=== PATIENT | female | born 1980 | race Caucasian/White ===

== ENCOUNTER → 2016-07-06 | Day surgery (SDC) | payer BC, OTHER ==
[2016-06-28 07:36] VITALS: Ht 172.7 cm; Wt 145.4 kg
[~2016-07-06] VITALS: Ht 172.7 cm; Wt 145.4 kg
[~2016-07-06] MED LIST: BECL1AER5 NAE; FLX10 PO; HYDR-5688 PO; IOPAMIDOL INJ 61% 15 ML VIAL ONE; LIDOCAINE HCL 1% MPF 5 ML VIAL ONE; PREG1CAP70 PO; PREG200C PO; PRENTAB26 PO; PRLSR20 PO; SITA50TA3 PO; SODIUM CHLORIDE 0.9% INJ 10 ML VIAL ONE; TIZA2CAP PO
--- NOTE | 2016-07-06 14:45 | History & Physical Bridge - [place] ---
H&P Re-Evaluation Bridge Note: I have examined the patient, reviewed the History & Physical and in the interval since the performance of the History & Physical I have noted the following changes of clinical significance: No changes noted
--- NOTE | 2016-07-06 15:09 | Discharge Instructions ---
Discharge Instructions Visit Reason for Visit: Lumbar Radiculopathy Discharge Discharge Diagnosis / Problem: low back pain Discharge Goals Goal(s): Decrease discomfort, Improve function Activity Recommendations Activity Limitations: resume your previous activity Anesthesia . Post Anesthesia Instructions: If you have had General Anesthesia or IV Sedation: * Do not drive today. * Resume driving when surgeon permits. * Do not make important decisions or sign legal documents today. * Call surgeon for: 1. Temperature elevations greater than 101 degrees F. 2. Uncontrollable pain. 3. Excessive bleeding. 4. Persistent nausea and vomiting. 5. Medication intolerance (nausea, vomiting or rash). * For nausea and vomiting use only clear liquids such as: tea, soda, bouillon until nausea subsides, then gradually increase diet as tolerated. * If you have any concerns or questions, call your surgeon's office. If physician is unavailable and it is an emergency, call 911 or go to the nearest emergency room. . Diet Recommendations Recommended Home Diet: no limitations Procedures Procedures Performed: Lumbar Epidural Steroid Injection Pending Studies Studies pending at discharge: no Medical Emergencies . Who to Call and When: Medical Emergencies: If at any time you feel your situation is an emergency, please call 911 immediately. . Non-Emergent Contact Non-Emergency issues call your: Specialist . . "Provider Documentation" section prepared by Adi Hoyos.
[2016-07-06 15:17] VITALS: TEMP 37.5
[2016-07-06 15:19] VITALS: BP 129/80; PULSE 83; O2SAT 99
--- NOTE | 2016-07-06 15:25 | OPERATIVE REPORT ---
DATE OF OPERATION: 07/06/2016 PREOPERATIVE DIAGNOSIS: L4-L5 annular tear with bilateral lower extremity radiculopathies. POSTOPERATIVE DIAGNOSES: Same. PROCEDURE: Left paramedian L4-L5 interlaminar epidural steroid injection under fluoroscopic guidance. SURGEON: Dr. Adi Hoyos. INDICATIONS: The patient is a 35-year-old -[place] female who has received epidurals in the past with good results with radicular pain, most recent one was done a number of months ago. She reports that her pain has been increasing and she is requesting an epidural to provide her with some relief of radicular pain down the leg. PHYSICAL EXAMINATION: Pleasant female seated comfortably in no apparent distress. She has some soreness to palpation of her sciatic notches bilaterally, worse with forward flexion. No problems with extension. She has normal motor and sensory exam of her lower extremities. CONSENT: Verbal and written consent was obtained from the patient. Risks and benefits were reviewed. Risks include but are not limited to epidural abscess, epidural hematoma, allergic reaction, dural puncture. The patient wishes to proceed. PROCEDURE: The patient was taken back to the special procedures room of the [facility] where she was maintained in a prone position. Backside was cleansed with Betadine x3 and a dry sterile dressing was applied. Fluoroscope was used to identify the L5-S1 intralaminar space and overlying skin was anesthetized on the left side with 4 mL of lidocaine 1% with a 25 gauge 1.5-inch needle. A 20 gauge 6 inch Tuohy needle was then directed down towards the intralaminar space. It was advanced under lateral fluoroscopic guidance and loss of resistance was noted at a depth of 11.5 cm. Isovue-300 contrast 1 mL was injected in which demonstrated epidural uptake pattern which was confirmed with both AP and lateral views. She then underwent injection after negative aspiration of 40 mg of Depo-Medrol and 4 mL of preservative free sodium chloride. Injection was well tolerated and reproduced a familiar radicular sensation into the backside. DISPOSITION: 1. The patient is taken out into the discharge recovery area where she will be discharged home once discharge criteria have been met. 2. Follow up in the [facility] office in 2-4 weeks. I attest to the content of the Intraoperative Record and any orders documented therein. Any exceptio ns are noted below.
== END | disposition home or self-care (01) ==
LOC: X.SURG 14:16
PROVIDERS: ATTEND Physical Medicine & Rehabilitation
DX: M54.16 Radiculopathy, lumbar region (principal); M51.87 Other intervertebral disc disorders, lumbosacral region

== ENCOUNTER → 2017-01-17 | Day surgery (SDC) | payer BC, OTHER ==
[2016-12-19 11:06] VITALS: Ht 172.7 cm; Wt 145.4 kg
[~2017-01-17] VITALS: Ht 172.7 cm; Wt 145.4 kg
[~2017-01-17] MED LIST changes: -BECL1AER5 NAE; -PREG1CAP70 PO
[2017-01-17 14:24] VITALS: TEMP 36.9
--- NOTE | 2017-01-17 15:28 | Discharge Instructions ---
Discharge Instructions Date of Service Jan 17, 2017. Visit Reason for Visit: Lumbosacral Intervertebral Disc Disorder Discharge Discharge Diagnosis / Problem: leg pain Discharge Goals Goal(s): Decrease discomfort, Improve function Activity Recommendations Activity Limitations: resume your previous activity Anesthesia . Post Anesthesia Instructions: If you have had General Anesthesia or IV Sedation: * Do not drive today. * Resume driving when surgeon permits. * Do not make important decisions or sign legal documents today. * Call surgeon for: 1. Temperature elevations greater than 101 degrees F. 2. Uncontrollable pain. 3. Excessive bleeding. 4. Persistent nausea and vomiting. 5. Medication intolerance (nausea, vomiting or rash). * For nausea and vomiting use only clear liquids such as: tea, soda, bouillon until nausea subsides, then gradually increase diet as tolerated. * If you have any concerns or questions, call your surgeon's office. If physician is unavailable and it is an emergency, call 911 or go to the nearest emergency room. . Diet Recommendations Recommended Home Diet: resume previous diet Procedures Procedures Performed: LUMBAR EPIDURAL STEROID INJECTION Pending Studies Studies pending at discharge: no Medical Emergencies . Who to Call and When: Medical Emergencies: If at any time you feel your situation is an emergency, please call 911 immediately. . Non-Emergent Contact Non-Emergency issues call your: Specialist . . "Provider Documentation" section prepared by Adi Hoyos. .
[2017-01-17 15:35] VITALS: BP 152/74; PULSE 96; O2SAT 100
--- NOTE | 2017-01-17 18:43 | OPERATIVE REPORT ---
DATE OF OPERATION: 01/17/2017 PREOPERATIVE DIAGNOSIS: Lumbar disk disease with bilateral lower extremity radiculopathies. POSTOPERATIVE DIAGNOSIS: Same. PROCEDURE: Right paramedian L5-S1 intralaminar epidural steroid injection under fluoroscopic guidance. INDICATIONS: The patient is a 36-year-old -Leb[place] female who has received epidurals in the past and the last time she received it was May, she did well up until October in which the effect started to wear off and she presents today for an epidural steroid injection to provide her with relief of radicular pain that is functionally limiting and problematic to her. PHYSICAL EXAMINATION: Pleasant female seated comfortably. She has some tenderness to palpation of her lower lumbar area as well as the sciatic notches bilaterally. She has no focal weakness. Negative seated straight leg raises. CONSENT: Verbal and written consent was obtained from the patient. Risks and benefits were reviewed. Risks include but are not limited to epidural abscess, epidural hematoma, allergic reaction, dural puncture. The patient wishes to proceed. DESCRIPTION OF PROCEDURE: The patient was taken back to the special procedures room of the [facility] where backside was cleansed with Betadine x3 and a dry sterile dressing was applied. Fluoroscope was used to identify the L5-S1 intralaminar space and the overlying skin was cleansed with Betadine x3 and covered with a dry sterile dressing. She then underwent anesthetization of the overlying skin area at L5-S1 on the right side. A 20 gauge 6 inch Tuohy needle was then directed down towards the intralaminar space. It was advanced under lateral fluoroscopic guidance and loss of resistance was noted at a depth of 10 cm. Isovue-300 contrast 1 mL was injected which demonstrated epidural uptake pattern which was confirmed with both AP and lateral views. She then underwent injection after negative aspiration of 40 mg of Depo-Medrol and 4 mL of preservative free sodium chloride. Injection was well tolerated and reproduced a familiar radicular sensation down the right leg. DISPOSITION: 1. The patient is taken out into the discharge recovery area where she will be discharged home once discharge criteria have been met. 2. Follow up in the [facility] office in 2-4 weeks. I attest to the content of the Intraoperative Record and any orders documented therein. Any exception s are noted below.
== END | disposition home or self-care (01) ==
LOC: X.SURG 14:19
PROVIDERS: ATTEND Physical Medicine & Rehabilitation
DX: M51.16 Intervertebral disc disorders with radiculopathy, lumbar region (principal); M79.1 Myalgia

== ENCOUNTER → 2017-05-23 | Outpatient (CLI) | payer OTHER ==
[~2017-05-23] MED LIST changes: -IOPAMIDOL INJ 61% 15 ML VIAL ONE; -LIDOCAINE HCL 1% MPF 5 ML VIAL ONE; -SODIUM CHLORIDE 0.9% INJ 10 ML VIAL ONE
== END | disposition home or self-care (01) ==
LOC: C.LABPVFM 10:22
PROVIDERS: ATTEND Family Medicine
DX: R50.9 Fever, unspecified (principal)

== ENCOUNTER → 2017-05-30 | Outpatient (CLI) | payer OTHER ==
--- NOTE | 2017-05-30 15:50 | DIAGNOSTIC IMAGING REPORT ---
CHEST 2 VIEWS ROUTINE CLINICAL HISTORY: Fever cough dyspnea COMPARISON STUDY: 05/20/2010 FINDINGS: The bones soft tissues and hemidiaphragms are normal. The cardiomediastinal silhouette is normal. The lungs are clear. The pulmonary vasculature is normal. IMPRESSION: Negative chest. The above report was generated using voice recognition software. It may contain grammatical, syntax or spelling errors. Electronically signed by: Luis Felipe Foster M.D. 05/30/2017 3:48 PM Dictated Date/Time: 05/30/2017 3:48 PM
== END | disposition home or self-care (01) ==
LOC: C.RADPV 15:34
PROVIDERS: ATTEND Family Medicine
DX: R05 Cough (principal); R50.9 Fever, unspecified

== ENCOUNTER → 2017-06-06 | Outpatient (CLI) | payer OTHER ==
--- NOTE | 2017-06-06 14:24 | DIAGNOSTIC IMAGING REPORT ---
ABDOMEN 2VIEW W/PA CHEST RTN HISTORY: 36 years-old Female FEVER NAUSEA WITH VOMITING acute fever and nausea COMPARISON: Chest radiographs 05/30/2017 TECHNIQUE: PA view of the chest with erect and supine views of the abdomen FINDINGS: Cardiomediastinal and hilar silhouettes are within normal limits. There is no pneumothorax, pleural effusion, focal airspace consolidation or overt pulmonary edema. The bones of the chest appear grossly intact. No pneumoperitoneum on the upright projection. Bowel gas pattern appears nonobstructive. No urolith or organomegaly. Probable phlebolith of the right hemipelvis, 3 mm. No fracture. IMPRESSION: 1. No acute process of the chest. 2. Nonobstructive bowel gas pattern without pneumoperitoneum. The above report was generated using voice recognition software. It may contain grammatical, syntax or spelling errors. Electronically signed by: Khoi Ulloa M.D. 06/06/2017 2:23 PM Dictated Date/Time: 06/06/2017 2:21 PM
[2017-06-06 17:39] LABS: HEMATOCRIT 38.2 % (37-47); MEAN CELL VOLUME 82.5 fL (80-100); MEAN CORPUSCULAR HEMOGLOBIN 28.1 pg (25-34); MEAN PLATELET VOLUME 9.7 fL (7.4-10.4); PLATELET COUNT 231 K/uL (130-400); RED CELL DISTRIBUTION WIDTH SD 42.1 fL (36.4-46.3); WHITE BLOOD COUNT 7.62 K/uL (4.8-10.8)
[2017-06-06 18:06] LABS: ALBUMIN 3.2 gm/dl (3.4-5.0); ALT/SGPT 97 U/L (12-78); BLOOD UREA NITROGEN 7 mg/dl (7-18); CALCIUM 9.3 mg/dl (8.5-10.1); CARBON DIOXIDE 24 mmol/L (21-32); CREATININE 0.89 mg/dl (0.60-1.20); GLUCOSE 103 mg/dl (70-99); LIPASE 157 U/L (73-393); POTASSIUM 3.9 mmol/L (3.5-5.1); SODIUM 135 mmol/L (136-145)
[2017-06-06 18:09] LABS: ALKALINE PHOSPHATASE 121 U/L (45-117); AST/SGOT 58 U/L (15-37); TOTAL PROTEIN 7.9 gm/dl (6.4-8.2)
== END | disposition home or self-care (01) ==
LOC: C.LABPVFM 13:47
PROVIDERS: ATTEND Family Medicine
DX: R50.9 Fever, unspecified (principal); R11.2 Nausea with vomiting, unspecified

== ENCOUNTER 2017-06-07 00:53 | Emergency (ER) | payer OTHER ==
[~2017-06-07] VITALS: Ht 172.7 cm; Wt 136.2 kg
[2017-06-07 00:55] VITALS: TEMP 37.5; Ht 172.7 cm; Wt 136.2 kg
[2017-06-07] MEDS ORDERED: GI COCKTAIL PO STA (01:13)
[2017-06-07] MEDS ORDERED: ONDANSETRON INJ 2 MG/ML 2 ML VIAL IV STA (01:13)
[2017-06-07] MEDS ORDERED: SODIUM CHLORIDE 0.9% 1000ML 1,000 ML IV STA (01:13)
--- NOTE | 2017-06-07 01:17 | EMERGENCY ROOM VISIT NOTE ---
History Report prepared by Ronni: Alivia Varghese Under the Supervision of: Dr. Jovany Calabrese M.D. First contact with patient: 01:06 Chief Complaint: FEVER Stated Complaint: FEVER,ABDOMINAL PAIN,VOMITING History of Present Illness The patient is a 36 year old female who presents to the Emergency Room with complaints of persistent abdominal pain that started 5 days ago. The patient rates her pain a 10/10 in severity. She notes she saw a doctor 4 days ago for a URI. She states she is unable to eat anything without vomiting. She notes she is experiencing a runny nose, back pain, and shortness of breath. She states she still has her gallbladder. Source of History: patient Onset: 5 days ago Position: abdomen Symptom Intensity: 10/10 Timing: other (persistent) Associated Symptoms: + SOB, + back pain Note: Additional symptoms: runny nose. Review of Systems See HPI for pertinent positives & negatives. A total of 10 systems reviewed and were otherwise negative. Past Medical & Surgical Appendectomy. Family History No pertinent family history. Social History Smoking Status: Former Smoker Alcohol Use: occasionally Marital Status: single Occupation Status: employed Current/Historical Medications Scheduled Omeprazole (Prilosec), 20 MG PO BID Pregabalin (Lyrica), 200 MG PO BID Sitagliptin (Januvia), 50 MG PO QAM Scheduled PRN Cyclobenzaprine Hcl (Flexeril *), 10 MG PO TID PRN for muscle spasms Hydrocodone/Acetaminophen 5MG/325MG ([employer] 5MG/325MG), 1 TABLETS PO BID PRN for Pain Tizanidine (Zanaflex), 2 MG PO Q8 PRN for SPASMS Allergies Coded Allergies: No Known Allergies (Unverified , 06/07/17) Physical Exam Vital Signs Date Time Temp Pulse Resp B/P (MAP) Pulse Ox O2 Delivery O2 Flow Rate FiO2 06/07/17 03:14 87 22 97 06/07/17 03:01 120/75 06/07/17 02:59 82 29 97 06/07/17 02:44 80 21 99 06/07/17 02:39 125/72 06/07/17 02:38 83 14 100 06/07/17 02:01 110/80 06/07/17 01:55 117/74 06/07/17 01:08 98 21 96 Room Air 06/07/17 01:07 115/78 06/07/17 00:55 37.5 102 20 140/88 100 Room Air Physical Exam GENERAL: Patient is well appearing and in no acute distress. HEENT: No acute trauma, normocephalic atraumatic, mucous membranes moist, no nasal congestion, no scleral icterus. NECK: No stridor, no adenopathy, no meningismus, trachea is midline. LUNGS: No dyspnea. Clear to auscultation and equal bilaterally. No wheeze, no rhonchi. HEART: Regular rate and rhythm. No murmurs, rubs, gallops appreciated. ABDOMEN: Soft, nontender, bowel sounds positive, no masses appreciated, no peritonitis. BACK: No midline tenderness, no CVA tenderness EXTREMITIES: Normal motion all extremities, no cyanosis, no edema. NEUROLOGIC: Alert and oriented, no acute motor or sensory deficits, no focal weakness, cranial nerves grossly intact. SKIN: No rash, no jaundice, no diaphoresis. Medical Decision & Procedures ER Provider Diagnostic Interpretation: Radiology results and stated below per my review and radiologist interpretation: US RUQ: Evaluation of gallbladder limited by contraction. No evidence of a gallstone. No biliary ductal dilation. The liver parenchyma is slightly increased in echogenicity suggestive of fatty infiltration. Liver measures 19.5 cm long. Right kidney is unremarkable. No free fluid. Laboratory Results 06/07/17 01:35 Red Blood Count 4.57, Mean Corpuscular Volume 82.3, Mean Corpuscular Hemoglobin 28.7, Mean Corpuscular Hemoglobin Concent 34.8, Mean Platelet Volume 9.0 06/07/17 01:35 Test 06/07/17 01:15 06/07/17 01:35 Urine Color DK YELLOW Urine Appearance CLEAR (CLEAR) Urine pH 5.5 (4.5-7.5) Urine Specific [place] 1.020 (1.000-1.030) Urine Protein NEG (NEG) Urine Glucose (UA) NEG (NEG) Urine Ketones NEG (NEG) Urine Occult Blood NEG (NEG) Urine Nitrite NEG (NEG) Urine Bilirubin NEG (NEG) Urine Urobilinogen NEG (NEG) Urine Leukocyte Esterase NEG (NEG) Urine WBC (Auto) 1-5 /hpf (0-5) Urine RBC (Auto) 0-4 /hpf (0-4) Urine Hyaline Casts (Auto) 1-5 /lpf (0-5) Urine Epithelial Cells (Auto) >30 /lpf (0-5) Urine Bacteria (Auto) 2+ (NEG) Urine Test NEG (NEG) White Blood Count 7.63 K/uL (4.8-10.8) Red Blood Count 4.57 M/uL (4.2-5.4) Hemoglobin 13.1 g/dL (12.0-16.0) Hematocrit 37.6 % (37-47) Mean Corpuscular Volume 82.3 fL (80-100) Mean Corpuscular Hemoglobin 28.7 pg (25-34) Mean Corpuscular Hemoglobin Concent 34.8 g/dl (32-36) Platelet Count 233 K/uL (130-400) Mean Platelet Volume 9.0 fL (7.4-10.4) RDW Standard Deviation 41.5 fL (36.4-46.3) RDW Coefficient of Variation 13.8 % (11.5-14.5) Neutrophils % (Manual) 41.1 % Lymphocytes % (Manual) 28.6 % Variant Lymphocytes % (manual) 20.5 % Monocytes % (Manual) 7.1 % Eosinophils % (Manual) 1.8 % Myelocytes % 0.9 % Neutrophils # (Manual) 3.14 K/uL (1.4-6.5) Total Absolute Neutrophils 3.14 K/uL (1.4-6.5) Lymphocytes # (Manual) 2.18 K/uL (1.2-3.4) Absolute Variant Lymphocytes 1.56 K/uL Total Absolute Lymphocytes 3.75 K/uL (1.2-3.4) Monocytes # (Manual) 0.54 K/uL (0.11-0.59) Eosinophils # (Manual) 0.14 K/uL (0-0.5) Myelocytes # 0.07 K/uL (0-0) Red Blood Cell Morphology Unremarkable Anion Gap 7.0 mmol/L (3-11) Est Creatinine Clear Calc Drug Dose 109.6 ml/min Estimated GFR () 79.7 Estimated GFR (Non- 68.8 BUN/Creatinine Ratio 6.7 (10-20) Calcium Level 8.6 mg/dl (8.5-10.1) Total Bilirubin 0.4 mg/dl (0.2-1) Direct Bilirubin < 0.1 mg/dl (0-0.2) Aspartate Amino Transf (AST/SGOT) 61 U/L (15-37) Alanine Aminotransferase (ALT/SGPT) 104 U/L (12-78) Alkaline Phosphatase 138 U/L (45-117) Total Protein 8.3 gm/dl (6.4-8.2) Albumin 3.2 gm/dl (3.4-5.0) Lipase 162 U/L (73-393) Laboratory results as reviewed by me. Medications Administered Medications (Trade) Dose Ordered Sig/Leo Route Start Time Stop Time Status Last Admin Dose Admin Ondansetron HCl (Zofran Inj) 4 mg NOW STAT IV 06/07/17 01:13 06/07/17 01:14 DC 06/07/17 01:47 4 MG Sodium Chloride 1,000 ml @ 999 mls/hr Q1H1M STAT IV 06/07/17 01:13 06/07/17 02:13 DC 06/07/17 01:47 999 MLS/HR Al Hydroxide/Mg Hydroxide (Maalox Susp) 30 ml STK-MED ONCE .ROUTE 06/07/17 01:43 06/07/17 01:44 DC 06/07/17 01:45 30 ML Lidocaine HCl (Viscous Lidocaine 2% Soln) 20 ml STK-MED ONCE .ROUTE 06/07/17 01:43 06/07/17 01:44 DC 06/07/17 01:45 20 ML Promethazine HCl (Phenergan 25MG Home Pack) 1 homepack UD ONCE PO 06/07/17 03:15 06/07/17 03:16 DC 06/07/17 03:28 1 HOMEPACK ED Course 0106: The patient was evaluated in room B9. A complete history and physical exam was performed. 0309: I reassessed the patient and she is feeling much better, only mild stomach discomfort. I discussed laboratory findings and that she can have a CT here or follow up with her PCP. After discussing risk and benefits she requested discharge and to try a different nausea medication and I advised she increase her omeprazole to twice daily. 0330: The patient is ready for discharge. Medical Decision Differential: Cholecystitis, Gallbladder disfunction, Hepatic Disfunction, Gastritis/PUD, Pancreatitis, ACS, Aortic Pathology, amongst other pathologies entertained. 36 yr old female with recent bronchitis who arrives with epigastric pain worse with eating which results in vomiting periodically. Feeling better after GI cocktail. US with fatty liver, normal GB. Labs mild LFT bump similar to labs from yesterday. Suspect that this is gastritis/PUD due to recent prednisone use , not using omeprazole given improvement in symptoms. We did discuss doing CT abdo which she would like to hold off on for now which seems reasonable given her soft benign abdomen and no fever no wbc elevation and labs unremarkable other than slight LFT. Fatty liver may be reason for LFT elevation. Discussed her need to continue following with PCP for further work-up but if pain worsening/continues RTED for further evaluation/treatment. Medication Reconcilliation Current Medication List: was personally reviewed by me Blood Pressure Screening Patient's blood pressure: Normal blood pressure Impression Primary Impression: Epigastric abdominal pain Additional Impression: Elevated liver enzymes Scribe Attestation The scribe's documentation has been prepared under my direction and personally reviewed by me in its entirety. I confirm that the note above accurately reflects all work, treatment, procedures, and medical decision making performed by me. Departure Information Dispostion Home / Self-Care Referrals Kimi Calderon C.R.N.P (PCP) Patient Instructions ED Epigastric Pain O, My [facility] Additional Instructions We are always here to help. Return if worsening pain, vomiting, or other concerning symptoms. Increase your Omeprazole to twice daily for 1 week. Follow up with your Primary Provider in the next few days for further evaluation. Problem Qualifiers
[2017-06-07] MEDS ORDERED: LIDOCAINE HCL 2% VISC SOLN 20 ML UDC ONE (01:43)
[2017-06-07] MEDS ORDERED: ALUMINUM/MAGNESIUM SUSP 30 ML UDC ONE (01:43)
[2017-06-07 01:50] LABS: HEMATOCRIT 37.6 % (37-47); HEMOGLOBIN 13.1 g/dL (12.0-16.0); MEAN CELL VOLUME 82.3 fL (80-100); MEAN CORPUSCULAR HEMOGLOBIN 28.7 pg (25-34); MEAN CORPUSCULAR HGB CONC 34.8 g/dl (32-36); PLATELET COUNT 233 K/uL (130-400); RED CELL DISTRIBUTION WIDTH CV 13.8 % (11.5-14.5); RED CELL DISTRIBUTION WIDTH SD 41.5 fL (36.4-46.3); WHITE BLOOD COUNT 7.63 K/uL (4.8-10.8)
[2017-06-07 02:18] LABS: ALBUMIN 3.2 gm/dl (3.4-5.0); ALT/SGPT 104 U/L (12-78); AST/SGOT 61 U/L (15-37); BLOOD UREA NITROGEN 7 mg/dl (7-18); CALCIUM 8.6 mg/dl (8.5-10.1); CARBON DIOXIDE 24 mmol/L (21-32); CREATININE 1.05 mg/dl (0.60-1.20); GLUCOSE 106 mg/dl (70-99); LIPASE 162 U/L (73-393); POTASSIUM 4.1 mmol/L (3.5-5.1); SODIUM 134 mmol/L (136-145)
[2017-06-07 02:21] LABS: ALKALINE PHOSPHATASE 138 U/L (45-117); TOTAL PROTEIN 8.3 gm/dl (6.4-8.2)
[2017-06-07 03:01] VITALS: BP 120/75
[2017-06-07 03:14] VITALS: PULSE 87; O2SAT 97
[2017-06-07] MEDS ORDERED: PHENERGAN 25MG HOMEPACK PO ONE (03:15)
--- NOTE | 2017-06-07 06:19 | DIAGNOSTIC IMAGING REPORT ---
GALLBLADDER-ABD LIMITED CLINICAL HISTORY: epigastric pain/vomiting post eating TECHNIQUE: Ultrasound COMPARISON STUDY: None FINDINGS: Moderately contracted gallbladder. No shadowing gallstones. Common bile duct 4 mm. Fatty infiltration of liver. Pancreas poorly seen. Right kidney negative for hydronephrosis. IMPRESSION: Fatty infiltration of liver. Otherwise negative study. The above report was generated using voice recognition software. It may contain grammatical, syntax or spelling errors. Electronically signed by: Luis Felipe Foster M.D. 06/07/2017 6:17 AM Dictated Date/Time: 06/07/2017 6:16 AM
== END 2017-06-07 03:29 | disposition home or self-care (01) ==
LOC: C.EDB 00:54
DX: R10.13 Epigastric pain (principal); R94.5 Abnormal results of liver function studies; Z87.891 Personal history of nicotine dependence

== ENCOUNTER → 2017-06-08 | Outpatient (CLI) | payer OTHER ==
[~2017-06-08] MED LIST changes: -PRENTAB26 PO
[2017-06-08 19:24] LABS: HEP C IGG 13 YRS+OLDER_RFLX NEG (NEG)
[2017-06-10 16:20] LABS: HEPATITIS A IGM TC 51813E NON-REACTIVE (NON-REACTIVE); HEPATITIS B CORE IGM TC51854R NON-REACTIVE (NON-REACTIVE)
== END | disposition home or self-care (01) ==
LOC: C.LABPVFM 13:18
PROVIDERS: ATTEND Family Medicine
DX: R74.8 Abnormal levels of other serum enzymes (principal)

== ENCOUNTER → 2017-06-11 | Outpatient (CLI) | payer OTHER | END | disposition home or self-care (01) | LOC: C.LABSPEC 14:49 | PROVIDERS: ATTEND Family Medicine | DX: R50.9 Fever, unspecified (principal); R11.2 Nausea with vomiting, unspecified ==

== ENCOUNTER → 2017-08-13 | Day surgery (SDC) | payer OTHER ==
[2017-07-17 16:35] VITALS: Ht 172.7 cm; Wt 134.1 kg
[~2017-08-13] VITALS: Ht 172.7 cm; Wt 134.1 kg
[~2017-08-13] MED LIST changes: +CYCL10TA6 PO; -FLX10 PO; +IOPAMIDOL INJ 61% 15 ML VIAL ONE; +LIDOCAINE HCL 1% MPF 5 ML VIAL ONE; +OMEP40CA41 PO; +PRENTAB89 PO; -PRLSR20 PO; +SODIUM CHLORIDE 0.9% INJ 10 ML VIAL ONE
--- NOTE | 2017-08-13 14:11 | [facility] Post Operative Brief Note ---
Immediate Operative Summary Operative Date Aug 13, 2017. Pre-Operative Diagnosis 1. Chronic lumbar radiculopathy 2. Chronic low back pain 3. Fibromyalgia Post-Operative Diagnosis Same Procedure(s) Performed Lumbar Epidural Steroid Injection Surgeon Dr. Luciana Hoyos Printing Estimator Surgeon(s) None Estimated Blood Loss 0 Findings Consistent with Post-Op Diagnosis Specimens NA Drains None Anesthesia Type Local Complication(s) none Disposition Disposition:
--- NOTE | 2017-08-13 14:13 | Discharge Instructions ---
Discharge Instructions Date of Service Aug 13, 2017. Visit Reason for Visit: Lumbar Radiculopathy Discharge Discharge Diagnosis / Problem: Right leg pain Discharge Goals Goal(s): Decrease discomfort, Improve function Activity Recommendations Activity Limitations: resume your previous activity Anesthesia . Post Anesthesia Instructions: If you have had General Anesthesia or IV Sedation: * Do not drive today. * Resume driving when surgeon permits. * Do not make important decisions or sign legal documents today. * Call surgeon for: 1. Temperature elevations greater than 101 degrees F. 2. Uncontrollable pain. 3. Excessive bleeding. 4. Persistent nausea and vomiting. 5. Medication intolerance (nausea, vomiting or rash). * For nausea and vomiting use only clear liquids such as: tea, soda, bouillon until nausea subsides, then gradually increase diet as tolerated. * If you have any concerns or questions, call your surgeon's office. If physician is unavailable and it is an emergency, call 911 or go to the nearest emergency room. . Diet Recommendations Recommended Home Diet: resume previous diet Procedures Procedures Performed: Lumbar Epidural Steroid Injection Pending Studies Studies pending at discharge: no Medical Emergencies . Who to Call and When: Medical Emergencies: If at any time you feel your situation is an emergency, please call 911 immediately. . Non-Emergent Contact Non-Emergency issues call your: Specialist . . "Provider Documentation" section prepared by Adi Hoyos. .
[2017-08-13 14:14] VITALS: TEMP 37
[2017-08-13 14:36] VITALS: BP 130/84; PULSE 76; O2SAT 97
--- NOTE | 2017-08-13 15:40 | OPERATIVE REPORT ---
DATE OF OPERATION: 08/13/2017 PREOPERATIVE DIAGNOSES: Chronic low back pain, lumbar radiculopathy, and lumbar disk disease. POSTOPERATIVE DIAGNOSES: Same. PROCEDURE: Right paramedian L5-S1 intralaminar epidural steroid injection under fluoroscopic guidance. INDICATIONS: The patient is a 36-year-old white female, who has received epidural injections typically about twice a year that provided her with number of months of relief of radicular pain. She reports that her pain has returned and is problematic to her. She presents today for an epidural injection to provide her with some relief. PHYSICAL EXAMINATION: GENERAL: Pleasant female seated comfortably. MUSCULOSKELETAL: Lumbar paraspinal muscles were palpated. Some soreness was noted. No significant limitations with forward flexion or extension. She has some sciatic notch sensitivity present on the right side. Normal lower extremity strength. Negative seated straight leg raises. CONSENT: Verbal and written consent was obtained from the patient. Risks and benefits were reviewed. Risks include, but are not limited to epidural abscess, epidural hematoma, allergic reaction, and dural puncture. The patient wishes to proceed. DESCRIPTION OF PROCEDURE: The patient was taken back into the special procedures room of [facility]. She was maintained in a prone position. Backside was cleansed with Betadine x3 and a dry sterile dressing was applied. Fluoroscope was used to identify the L5-S1 intralaminar space and overlying skin on the right side was anesthetized with 4 mL of lidocaine 1% with a 25 gauge 1-1/2 inch needle. A 20-gauge 6-inch Tuohy needle was then directed down towards the intralaminar space. It was advanced under lateral fluoroscopic guidance. Loss of resistance was noted at a depth of 10.5 cm. Isovue-300 contrast 1 mL was injected in which demonstrated epidural uptake pattern. She then underwent injection after negative aspiration of 40 mg Depo-Medrol and 4 mL of preservative free sodium chloride. Injection was well tolerated and reproduced a familiar transient radicular sensation down the right leg. DISPOSITION: 1. The patient was taken out into the discharge recovery area, where she will be discharged home once discharge criteria have been met. 2. Follow up in the [facility] office in 4 weeks' time. She will follow up at that time. I attest to the content of the Intraoperative Record and any orders documented therein. Any exception s are noted below.
== END | disposition home or self-care (01) ==
LOC: X.SURG 13:01
PROVIDERS: ATTEND Physical Medicine & Rehabilitation
DX: M51.16 Intervertebral disc disorders with radiculopathy, lumbar region (principal); M79.7 Fibromyalgia; Z79.899 Other long term (current) drug therapy

== ENCOUNTER 2018-10-10 05:28 | Inpatient (IN) ==
--- NOTE | 2018-10-08 15:55 | Anesthesiology Consultation ---
Date of Service October 08, 2018 History Surgery Operation Date: 10/10/18 09:15 Proposed Procedures p Section in LD - Terri Nuñez MD, FACOG s with Bilateral Tubal Ligation - Terri Nuñez MD, FACOG Height/Weight Height: 5 ft 8 in Weight: 134.717 kg Allergies Allergy/AdvReac Type Severity Reaction Status Date / Time No Known Allergies Allergy Verified 10/03/18 13:20 Medications Home Medications Medication Instructions Recorded Confirmed Last Taken [id number] fumarate-FA 1 tab PO DAILY 02/14/18 10/03/18 02/14/18 [] omeprazole 40 mg PO QAM 02/14/18 10/03/18 02/14/18 Past Medical History Medical History Chronic back pain Lumbar radiculopathy Degenerative disc disease Diabetes DIET CONTROLLED. PREVIOUSLY ON ORAL MEDICATIONS WHICH WERE DISCONTINUED DURING . PT PASSED GLUCOSE TOLERANCE TEST. Fibromyalgia GERD (gastroesophageal reflux disease) Morbid obesity Osteoarthritis Past Surgical History Surgical History H/O oral surgery History of appendectomy History of tonsillectomy and adenoidectomy History of carpal tunnel release of both wrists History of colonoscopy History of esophagogastroduodenoscopy (EGD) History of wisdom tooth extraction Social History Smoking Status: Former smoker Do You Dip or Chew Tobacco: No Smoking End Date: QUIT 7 YEARS AGO Hx Alcohol Use: No Hx Substance Use: No substance use type: does not use
--- NOTE | 2018-10-09 14:49 | Anesthesiology Consultation ---
Date of Service October 09, 2018 Assessment & Plan (1) Encounter for pre-operative examination: Hx chronic LBP with radiculopathy/DDD (see 2016 lumbar MRI). Reviewed procedure and technique for /spinal with patient. Patient voiced understanding. Chart Review Chart Review: Acceptable Risk for Surgery (pending labs AM DOS) and Patient seen in Pre Admission Testing Teaching & Discussion Pre-Anesthesia Teaching/Discussion Notes: Instructed NPO after midnight before surgery,except medications with 15 cc of water. Medication instructions provided according to the PAT guidelines. History Surgery Operation Date: 10/10/18 07:30 Proposed Procedures p Section - Terri Nuñez MD, FACOG s with Bilateral Tubal Ligation - Terri Nuñez MD, FACOG Height/Weight Height: 5 ft 8 in Weight: 133.6 kg Allergies Allergy/AdvReac Type Severity Reaction Status Date / Time No Known Allergies Allergy Verified 10/03/18 13:20 Medications Home Medications Medication Instructions Recorded Confirmed Last Taken [id number] fumarate-FA 1 tab PO DAILY 02/14/18 10/03/18 02/14/18 [] omeprazole 40 mg PO QAM 02/14/18 10/03/18 02/14/18 Past Medical History Medical History Chronic back pain Lumbar radiculopathy Degenerative disc disease GERD (gastroesophageal reflux disease) CONTROLLED Osteoarthritis Diabetes DIET CONTROLLED. PREVIOUSLY ON ORAL MEDICATIONS WHICH WERE DISCONTINUED DURING . PT PASSED GLUCOSE TOLERANCE TEST. Fibromyalgia Morbid obesity Exercise / Class Metabolic Activity III < 4 Walking/Shop/Light housework Past Family History Family History Father Family history of diabetes mellitus Past Surgical History Surgical History H/O oral surgery History of appendectomy History of tonsillectomy and adenoidectomy History of carpal tunnel release of both wrists History of colonoscopy History of esophagogastroduodenoscopy (EGD) History of wisdom tooth extraction Past Anesthesia History No Hx of Anesthesia Complications and No Family Hx of Anesthesia Complications History of PONV No Hx of PONV and No Hx of Motion Sickness Social History Smoking Status: Former smoker Do You Dip or Chew Tobacco: No Smoking End Date: QUIT 7 YEARS AGO Hx Alcohol Use: No Hx Substance Use: No substance use type: does not use Review of Systems Patient denies chest pain, shortness of breath, cough, wheezing, palpitations. Physical Exam Vital Signs Last Vital Signs Temp 36.9 C 10/10/18 05:40 Pulse 82 10/10/18 05:45 BP 135/84 10/10/18 05:45 VITALS BP 117/75 P 69 TEMP 98.8 SP02 99%RA RESP 16 PHYSICAL Full neck and c-spine range of motion. Full TMJ range of motion. TMD 4 finger breaths Mallampati Score 3 Dentition: full dentures on upper Lungs: clear throughout to auscultation Cardiac: regular rate and rhythm, no murmurs noted Spine: normal Extremities: no edema Testing Other Testing Lumbar spine MRI 11/19/15 L1-2: The central canal and neural foramen are patent. L2-3: The central canal and neural foramen are patent. L3-4: The central canal and neural foramen are patent. There is mild facet arthrosis. L4-5: There is a tiny central disc protrusion with superior subligamentous migration. There is minimal narrowing of the central canal. The lateral recesses and neural foramen are patent. There is facet arthrosis. L5-S1: There is a tiny central disc protrusion. There is facet arthrosis. The central canal and neural foramen are patent. IMPRESSION: 1. Mild multilevel degenerative disc disease with a small central disc protrusion with superior subligamentous migration at L4-L5 that results in minimal narrowing of the central canal. 2. Mild to moderate lower lumbar spine facet arthrosis.
--- NOTE | 2018-10-09 15:36 | History & Physical Report ---
Date of Service October 09, 2018 Assessment & Plan (1) Delivery by elective section: Wishes primary section and tubal ligation for spine issues. Group has agreed. Disc risks, especially increased risks with obesity and diabetes mellitus. Bleeding, infection, injury to internal organs or baby. DVT. Discussed alternatives. Wishes tubal ligation as well. Disc failure rate and regret rate History of Present Illness Primary Care Provider: MIGUELITO Patel 39 weeks [place] who wishes primary section for prior spine issues. Morbidly obese and Type 2 DM. otherwise unremarkable. Also wishes tubal ligation Allergies Allergy/AdvReac Type Severity Reaction Status Date / Time No Known Allergies Allergy Verified 10/03/18 13:20 Home Medications Home Medications Medication Instructions Recorded Confirmed Type [id number] fumarate-FA 1 tab PO DAILY 02/14/18 10/03/18 History [] omeprazole 40 mg PO QAM 02/14/18 10/03/18 History Patient History Medical History Chronic back pain Lumbar radiculopathy Degenerative disc disease Diabetes DIET CONTROLLED. PREVIOUSLY ON ORAL MEDICATIONS WHICH WERE DISCONTINUED DURING . PT PASSED GLUCOSE TOLERANCE TEST. Fibromyalgia GERD (gastroesophageal reflux disease) CONTROLLED Morbid obesity Osteoarthritis Surgical History H/O oral surgery History of appendectomy History of tonsillectomy and adenoidectomy History of carpal tunnel release of both wrists History of colonoscopy History of esophagogastroduodenoscopy (EGD) History of wisdom tooth extraction Family History Father Family history of diabetes mellitus Social History Preferred Language: Japanese Communication Ability: Effective Preparing Box Tender Required: No Beliefs That Will Affect Care: None Current Living Situation Comment: BABY'S FATHER IN PROCESS OF MOVING IN WITH PT Other Information That Helps Us Care for You: No Feels Safe at Home: Yes Safety Concerns: Feels Safe At This Time Smoking Status: Former smoker Do You Dip or Chew Tobacco: No Smoking End Date: QUIT 7 YEARS AGO Second Hand Exposure: No Tobacco Cessation Education Requested by Patient: No Hx Alcohol Use: No Hx Substance Use: No Physical Exam Constitutional: WD/WN, vitals as above Respiratory: normal respiratory effort, lungs clear to auscultation Cardiovascular: RRR, no murmur, no edema Genitourinary: OB Exam Abdomen: + fundal height (difficult to measure), + heart tones and + vertex
[2018-10-10] MEDS ORDERED: LACTATED RINGER'S 1,000 ML IV SCH ×2 (06:00→11:12)
[2018-10-10] MEDS ORDERED: CEFAZOLIN 3,000 MG in DEXTROSE 5% 50 ML IV SCH (06:00)
[2018-10-10] MEDS ORDERED: CITRIC ACID/SODIUM CITRATE 15 ML UDC PO SCH (06:00)
[2018-10-10 06:12] LABS: Basophils # (auto) 0.03 K/uL (0-0.2); Basophils % (auto) 0.3 %; Eosinophils # (auto) 0.15 K/uL (0-0.5); Eosinophils % (auto) 1.5 %; Hematocrit (blood only) 34.6 % (37-47); Hemoglobin 11.8 g/dL (12.0-16.0); Immature Granulocytes # (auto) 0.04 K/uL (0.00-0.02); Immature Granulocytes % (auto) 0.4 %; Lymphocytes # (auto) 2.61 K/uL (1.2-3.4); Lymphocytes % (auto) 25.6 %; Mean Corpuscular Volume 83.4 fL (80-100); Mean Platelet Volume 9.1 fL (7.4-10.4); Monocytes # (auto) 0.91 K/uL (0.11-0.59); Monocytes % (auto) 8.9 %; Neutrophils # (auto) 6.46 K/uL (1.4-6.5); Neutrophils % (auto) 63.3 %; Platelet Count 342 K/uL (130-400); RDW Coefficient of Variation 12.8 % (11.5-14.5); RDW Standard Deviation 38.5 fL (36.4-46.3); Red Blood Count 4.15 M/uL (4.2-5.4)
[2018-10-10 06:15] LABS: Mean Corpuscular Hgb Conc 34.1 g/dL (32-36)
[2018-10-10] MEDS ORDERED: MoRPHine SULFATE PF 1 MG/ML 10 ML AMP/VIAL ONE (07:07)
--- NOTE | 2018-10-10 07:12 | History & Physical Bridge Note ---
Date of Service October 10, 2018 History & Physical Bridge Note I have examined the patient, reviewed the History & Physical and in the interval since the performance of the History & Physical I have noted the following changes of clinical significance: no changes noted
[2018-10-10] MEDS ORDERED: NALOXONE HCL 1 MG in SODIUM CHLORIDE 0.9% 1000ML 1,000 ML IV PRN (07:29)
[2018-10-10] MEDS ORDERED: ONDANSETRON INJ 2 MG/ML 2 ML VIAL IV PRN (07:29)
[2018-10-10] MEDS ORDERED: NALOXONE HCL 0.4 MG/1 ML VIAL/CARP IV PRN (07:29)
[2018-10-10] MEDS ORDERED: KETOROLAC 30 MG/ML VIAL IV PRN (07:29)
[2018-10-10] MEDS ORDERED: DiphenhydrAMINE HCL 50 MG/ML VIAL IV PRN (07:29)
[2018-10-10] MEDS ORDERED: LACTATED RINGER'S 500 ML IV PRN (07:29)
[2018-10-10] MEDS ORDERED: ePHEDrine sulfate 50 MG/ML AMP IV PRN (07:29)
[2018-10-10] MEDS ORDERED: MoRPHine SULFATE PF 1 MG/ML 10 ML AMP/VIAL INT SPINAL ONE (07:29)
[2018-10-10] MEDS ORDERED: NALOXONE HCL 0.08 MG in SYRINGE 1.8 ML IV PRN (07:29)
[2018-10-10] MEDS ORDERED: PROMETHAZINE HCL 12.5 MG in SODIUM CHLORIDE 0.9% 50 ML IV PRN (07:29)
[2018-10-10] MEDS ORDERED: NALBUPHINE HCL INJ 10 MG/ML AMP IV PRN (07:29)
[2018-10-10] MEDS ORDERED: MEPERIDINE HCL 25 MG/ML CARP IV PRN (07:29)
[2018-10-10] MEDS ORDERED: NO NARCOTICS OR SEDATIVES SCH (07:30)
[2018-10-10] MEDS ORDERED: SODIUM CHLORIDE 0.9% 1000ML 1,000 ML IV SCH (07:30)
[2018-10-10] MEDS ORDERED: METOCLOPRAMIDE HCL INJ 5 MG/ML 2 ML VIAL ONE (08:18)
[2018-10-10] MEDS ORDERED: PROPOFOL IV EMULSION 10 MG/ML 20 ML VIAL IV ONE (08:18)
[2018-10-10] MEDS ORDERED: ePHEDrine sulfate 50 MG/ML SYR ONE (08:18)
[2018-10-10] MEDS ORDERED: SUCCINYLCHOLINE CHLORIDE 20 MG/ML 10 ML VIAL ONE (08:18)
[2018-10-10] MEDS ORDERED: ONDANSETRON INJ 2 MG/ML 2 ML VIAL ONE (08:18)
[2018-10-10] MEDS ORDERED: LIDOCAINE 2% 20 MG/ML 5 ML SYR IV ONE (08:18)
--- NOTE | 2018-10-10 08:39 | Operative Report ---
Post Operative Report Pre & Post Diagnosis Operation Date: 10/10/18 07:30 <No data on this case meets the specified criteria> Primary elective section and patient requests permanent sterilization Procedure Operation Date: 10/10/18 07:30 Actual Procedures s with Bilateral Tubal Ligation - Terri Nuñez MD, FACOG p Section in LD; LIVE MALE INFANT AT 0803(Bilateral) - Terri Nuñez MD, FACOG Surgeon Terri Nuñez MD, FACOG Dry Boss Dr. Benitez Estimated Blood Loss 600 Findings Consistent with Post-Op Diagnosis Specimens Cord gases cord blood and bilateral segments of fallopian tubes left and right Description of Procedure Reviewed the procedure and request for sterilization with the patient prior to the procedure she was given a spinal anesthetic Coronado catheter inserted by nursing IV antibiotics given 3 g Ancef prepped and draped in supine position with a leftward tilt pickups with teeth were used to determine incision area adequate for incision scalpel used to make a low Pfannenstiel incision dissect down through subtenons fat through the fascia in the midline fascia cut laterally with the curved Doan scissors and then fascia released from its attachments from the rectus muscle superiorly and inferiorly rectus muscles were split peritoneal cavity was entered bluntly in a superior location peritoneal opening enlarged to allow exposure bladder retractor placed Metzenbaums used to dissect away the bladder flap scalpel used to make a low transverse incision on the uterus entry was done bluntly with the compressor operator portable's fingers opening was enlarged by suite sweeping The cephalad with the compressor operator portable's fingers Baby was delivered in vertex position by pressure on the abdomen and flexion of the head clear fluid there was a double nuchal cord mouth and then there suctioned live vigorous male no excessive force used cord clamped and cut cord gases obtained cord blood obtained with center removed uterus exteriorized IV Pitocin started we ensured all the placenta removed with a moist lap hysterotomy site closed with 0 Monocryl in a 2 layer fashion first locked second layer not locked hemostasis excellent uterine tone excellent after generous irrigation and suction we performed a tubal ligation this was done by grasping first the right fallopian tube with a Jb and then placing 2 ties of 0 chromic around the base of the isthmic portion of the fallopian tube that was grasped and then cutting the tube with Metzenbaums and then observing for hemostasis The exact same process continued on the left side both sides were hemostatic uterus was placed back in the peritoneal cavity after irrigation and suction both fallopian tube and incision site areas were hemostatic Rectus muscles were inspected and found to be hemostatic fascia closed with 0 Vicryl subtendinous fat irrigated and closed with 3-0 Vicryl skin closed with 4- 0 subcuticular Monocryl Steri-Strips applied sponge management counts correct and urine was clear at the end of the procedure I attest to the content of the Intraoperative Record and any orders documented therein. Any exceptions are noted below.
[2018-10-10 09:03] LABS: Base Excess Cord Arterial Bld -3.7 mEq/L (-9-1.8); CO2 Cord Arterial Blood 59 mmHg (39.1-73.5); HCO3 Cord Arterial Blood 25 mmol/L (19.7-28.5); pH Cord Arterial Blood 7.24 (7.1-7.38)
[2018-10-10 09:08] LABS: Base Excess Cord Venous Blood -1.4 mEq/L (-7.7-1.9); Cord Venous Blood HCO3 24 mmol/L (18.4-26.8); Cord Venous Blood PCO2 44 mmHg (30.4-57.2); Cord Venous Blood PO2 33 mmHg (14.1-43.3); Cord Venous Blood pH 7.36 (7.20-7.44)
[2018-10-10] MEDS ORDERED: SUPERCREAM 0.870% 15 GM JAR EXT PRN (11:12)
[2018-10-10] MEDS ORDERED: HYDROCORTISONE ACETATE 25 MG SUPP PR PRN (11:12)
[2018-10-10] MEDS ORDERED: SENNA 8.6 MG TAB PO PRN (11:12)
[2018-10-10] MEDS ORDERED: BENZOCAINE 20% AER SPR 82.5 GM CAN EXT PRN (11:12)
[2018-10-10] MEDS ORDERED: DIPHTHERIA/TETANUS/PERTUSSIS 0.5 ML SYR/VIAL IM ONE (11:12)
[2018-10-10] MEDS ORDERED: OXYTOCIN 20 UNITS in LACTATED RINGER'S 1,000 ML IV SCH (11:12)
[2018-10-10] MEDS ORDERED: MAGNESIUM HYDROXIDE SUSP 30 ML UDC PO PRN (11:12)
[2018-10-10] MEDS: FERROUS SULFATE 325 MG TAB PO SCH (14:06)
[2018-10-10] MEDS: PRENATAL VITAMIN 1 TAB PO SCH (14:07)
[2018-10-10] MEDS: SIMETHICONE 80 MG CHEW PO SCH ×3 (14:07→21:22)
[2018-10-10] MEDS: DOCUSATE SODIUM 100 MG CAP PO SCH ×2 (14:07→21:22)
--- NOTE | 2018-10-10 15:19 | Anesthesiology Progress Note ---
Date of Service October 10, 2018 Anesthesia Post Procedure Vital Signs Vital Signs: Temp Pulse Pulse Resp BP BP Pulse Ox 10/10/18 14:21 19 100 10/10/18 13:01 20 100 10/10/18 12:10 19 99 10/10/18 11:35 36.4 C L 65 20 131/77 97 10/10/18 10:51 67 97 10/10/18 10:46 69 98 10/10/18 10:41 73 96 10/10/18 10:39 67 133/82 10/10/18 10:38 36.5 C 20 10/10/18 10:36 76 98 10/10/18 10:31 78 97 10/10/18 10:26 77 95 10/10/18 10:21 73 99 10/10/18 10:16 73 97 10/10/18 10:11 70 145/70 H 97 10/10/18 10:10 72 183/95 H 10/10/18 10:08 18 10/10/18 10:06 79 97 10/10/18 10:01 77 98 10/10/18 09:56 76 98 10/10/18 09:51 84 98 10/10/18 09:46 71 96 10/10/18 09:41 74 98 10/10/18 09:39 75 156/77 H 10/10/18 09:38 36.5 C 20 10/10/18 09:36 75 97 10/10/18 09:31 70 97 10/10/18 09:29 75 151/78 H 10/10/18 09:28 20 10/10/18 09:26 81 94 10/10/18 09:23 79 94 10/10/18 09:22 76 20 87/54 L 10/10/18 09:21 87 88 L 10/10/18 09:18 73 91 10/10/18 09:16 71 99 10/10/18 09:11 68 98 10/10/18 09:08 71 20 152/80 H 10/10/18 09:06 70 99 10/10/18 09:01 75 97 10/10/18 08:59 69 150/72 H 10/10/18 08:58 20 10/10/18 08:56 74 99 10/10/18 08:51 79 131/60 97 10/10/18 08:48 20 10/10/18 08:47 77 94 10/10/18 08:46 67 99 10/10/18 08:41 65 98 10/10/18 08:39 67 122/66 10/10/18 08:38 36.4 C L 20 10/10/18 05:45 82 135/84 10/10/18 05:40 36.9 C Transfer of Care Handoff Completed per policy Notes Mental Status: alert / awake / arousable Patient Amnestic to Procedure: Yes Nausea / Vomiting: adequately controlled Pain: adequately controlled Airway Patency, RR, SpO2: stable & adequate BP & HR: stable & adequate Hydration State: stable & adequate Neuraxial Anesthesia: was administered and sensory block is resolving Anesthetic Complications: no major complications apparent
[2018-10-11] MEDS ORDERED: PROMETHAZINE HCL 25 MG in SODIUM CHLORIDE 0.9% 50 ML IV PRN (01:30)
[2018-10-11] MEDS ORDERED: ONDANSETRON INJ 2 MG/ML 2 ML VIAL IV PRN (01:30)
[2018-10-11] MEDS ORDERED: MEPERIDINE HCL 50 MG/ML CARP IV PRN (01:30)
[2018-10-11] MEDS ORDERED: DiphenhydrAMINE HCL 50 MG/ML VIAL IV PRN (01:30)
[2018-10-11] MEDS ORDERED: KETOROLAC 30 MG/ML VIAL IV PRN (01:30)
[2018-10-11] MEDS ORDERED: DC INTRASPINAL MORPHINE SCH (01:30)
[2018-10-11] MEDS ORDERED: ZOLPIDEM TARTRATE 5 MG TAB PO PRN (01:30)
[2018-10-11] MEDS: OXYCODONE/ACETAMINOPHEN 5mg/325mg TAB PO PRN ×3 (04:45→18:26)
[2018-10-11] MEDS: IBUPROFEN 600 MG TAB PO PRN ×3 (04:46→18:26)
[2018-10-11 06:41] LABS: Basophils # (auto) 0.02 K/uL (0-0.2); Basophils % (auto) 0.2 %; Eosinophils # (auto) 0.11 K/uL (0-0.5); Eosinophils % (auto) 1.1 %; Hematocrit (blood only) 29.8 % (37-47); Hemoglobin 10.3 g/dL (12.0-16.0); Immature Granulocytes # (auto) 0.06 K/uL (0.00-0.02); Immature Granulocytes % (auto) 0.6 %; Lymphocytes # (auto) 1.32 K/uL (1.2-3.4); Lymphocytes % (auto) 12.7 %; Mean Corpuscular Hgb Conc 34.6 g/dL (32-36); Mean Corpuscular Volume 84.4 fL (80-100); Mean Platelet Volume 8.8 fL (7.4-10.4); Monocytes # (auto) 0.89 K/uL (0.11-0.59); Monocytes % (auto) 8.5 %; Neutrophils # (auto) 8.03 K/uL (1.4-6.5); Neutrophils % (auto) 76.9 %; Platelet Count 261 K/uL (130-400); RDW Coefficient of Variation 12.9 % (11.5-14.5); RDW Standard Deviation 39.5 fL (36.4-46.3); Red Blood Count 3.53 M/uL (4.2-5.4); White Blood Count 10.43 K/uL (4.8-10.8)
--- NOTE | 2018-10-11 07:18 | Obstetrical Progress Note ---
Date of Service <Alexis Nelson MD - Last Filed: 10/11/18 07:20> October 11, 2018 Assessment & Plan <Alexis Nelson MD - Last Filed: 10/11/18 07:20> (1) delivery delivered: 37 year old day 1 s/p Primary elective at 39 weeks due to chronic spinal arthrititis * Vital Signs Reviewed and WNL * Blood type O+ GBS-, Rubella immune * Pain controlled by pain medication. * Hemoglobin 10.3 * Patient encouraged to try and ambulate more today Subjective <Alexis Nelson MD - Last Filed: 10/11/18 07:20> Ambulation: limited ambulation Voiding: no voiding problems Passing Gas:: Yes Diet Tolerance:: regular diet Lochia:: Small Feeding Type:: breast feeding Current Pain Level(1-10): 7 Dede Camarena is doing okay, she has a large amount of pain at the incision site but it is well controlled with pain medication. No questions or concerns at this time. Breast feeding, pumping. Constitutional: no fever and no chills Respiratory: no cough and no dyspnea Cardiovascular: no chest pain, no dyspnea and no calf pain Gastrointestinal: no nausea and no vomiting Physical Exam <Alexis Nelson MD - Last Filed: 10/11/18 07:20> Vital Signs (Past 24 Hours) Last Vital Signs Temp 36.8 C 10/11/18 04:15 Pulse 70 10/11/18 04:15 Resp 20 10/11/18 04:15 BP 123/79 10/11/18 04:15 Pulse Ox 98 10/11/18 04:15 Constitutional well developed, well nourished, cooperative and comfortable Respiratory normal respiratory effort, lungs clear to auscultation Cardiovascular Rate/Rhythm: regular rate and regular rhythm Heart Sounds: no click, no gallop, no murmur and no cardiac rub Extremities: no calf tenderness Gastrointestinal (Abdomen) Percussion/Palpation: + abdomen tender (At incision) and abdomen soft Incision clean dry and intact Genitourinary OB Exam Abdomen: + fundal height (2 cm above umbilicus) Fundus: + firm <Terri Nuñez MD, FACOG - Last Filed: 10/13/18 20:03> Co-Signing Physician Notes Resident Physician Supervision Note: I interviewed and examined the patient. Discussed with Dr. Nelson and agree with findings and plan as documented in the note. Any exceptions or clarifications are listed here: [None] Documented By: Terri Nuñez MD, FACOG Resident Activity Tracking <Alexis Nelson MD - Last Filed: 10/11/18 07:20> Resident Involvement: Resident Care Provided Care Provided: OB Delivery
[2018-10-11] MEDS: DOCUSATE SODIUM 100 MG CAP PO SCH ×2 (08:35→19:58)
[2018-10-11] MEDS: SIMETHICONE 80 MG CHEW PO SCH ×4 (08:35→19:58)
[2018-10-11] MEDS: PRENATAL VITAMIN 1 TAB PO SCH (08:35)
[2018-10-11] MEDS: FERROUS SULFATE 325 MG TAB PO SCH (08:36)
[2018-10-11] MEDS ORDERED: BISACODYL 5 MG TABEC PO SCH (20:00)
[2018-10-11] MEDS ORDERED: BISACODYL 10 MG SUPP PR STA (20:52)
[2018-10-11] MEDS: MAGNESIUM HYDROXIDE SUSP 30 ML UDC PO SCH (20:58)
[2018-10-12] MEDS: IBUPROFEN 600 MG TAB PO PRN ×3 (02:32→21:15)
[2018-10-12] MEDS: MAGNESIUM HYDROXIDE SUSP 30 ML UDC PO SCH ×4 (02:32→21:15)
[2018-10-12] MEDS ORDERED: SOD PHOSPHATE/SOD BIPHOSPHATE ENEMA 132 ML BTL PR STA (03:02)
--- NOTE | 2018-10-12 07:47 | Obstetrical Progress Note ---
Date of Service <Alexis Nelson MD - Last Filed: 10/12/18 07:47> October 12, 2018 Assessment & Plan <Alexis Nelson MD - Last Filed: 10/12/18 07:47> (1) delivery delivered: 37 year old day 2 s/p Primary elective at 39 weeks due to chronic spinal arthrititis * Vital Signs Reviewed and WNL * Blood type O+ GBS-, Rubella immune * Pain controlled currently * Hemoglobin 10.3 * Patient encouraged to try and ambulate more today will advance diet as tolerated Subjective <Alexis Nelson MD - Last Filed: 10/12/18 07:47> Ambulation: ambulating normally Voiding: no voiding problems Passing Gas:: Yes Diet Tolerance:: clear liquids Lochia:: Small Feeding Type:: breast feeding Current Pain Level(1-10): 5 Patient was having very bad pain last night, not passing gas. Received an enema which greatly improved her pain level and she started to pass gas spontaneously. On clear liquid diet for now. Constitutional: no fever and no chills Respiratory: no cough and no dyspnea Cardiovascular: no chest pain, no dyspnea and no calf pain Gastrointestinal: + constipation; no nausea and no vomiting Physical Exam <Alexis Nelson MD - Last Filed: 10/12/18 07:47> Vital Signs (Past 24 Hours) Last Vital Signs Temp 36.7 C 10/12/18 00:30 Pulse 74 10/12/18 00:30 Resp 18 10/12/18 00:30 BP 135/85 10/12/18 00:30 Pulse Ox 99 10/12/18 00:30 Constitutional well developed, well nourished, cooperative and comfortable Respiratory normal respiratory effort, lungs clear to auscultation Cardiovascular Rate/Rhythm: regular rate and regular rhythm Heart Sounds: no click, no gallop, no murmur and no cardiac rub Extremities: no calf tenderness Gastrointestinal (Abdomen) Percussion/Palpation: + abdomen tender (Mildly tender globally) and abdomen soft Genitourinary OB Exam Abdomen: + fundal height (1 cm above umbilicus) Fundus: + firm <Douglas Nuñez MD - Last Filed: 10/16/18 13:10> Co-Signing Physician Notes Patient seen and evaluated and agree with the above findings and plan Resident Activity Tracking <Alexis Nelson MD - Last Filed: 10/12/18 07:47> Resident Involvement: Resident Care Provided Care Provided: OB Delivery
[2018-10-12 07:59] LABS: Hematocrit (blood only) 35.2 % (37-47); Hemoglobin 11.9 g/dL (12.0-16.0)
[2018-10-12] MEDS ORDERED: BISACODYL 10 MG SUPP PR PRN (08:33)
[2018-10-12] MEDS: DOCUSATE SODIUM 100 MG CAP PO SCH ×2 (09:00→21:14)
[2018-10-12] MEDS: PRENATAL VITAMIN 1 TAB PO SCH (09:00)
[2018-10-12] MEDS: SIMETHICONE 80 MG CHEW PO SCH ×5 (09:01→21:14)
[2018-10-12] MEDS: FERROUS SULFATE 325 MG TAB PO SCH (09:04)
[2018-10-13] MEDS: IBUPROFEN 600 MG TAB PO PRN ×2 (00:45→09:22)
[2018-10-13] MEDS: MAGNESIUM HYDROXIDE SUSP 30 ML UDC PO SCH ×2 (02:35→09:20)
--- NOTE | 2018-10-13 07:39 | Obstetrical Progress Note ---
Date of Service October 13, 2018 Assessment & Plan (1) delivery delivered: Ready for discharge, instructions reviewed. Present on Admission?: Yes Subjective Ambulation: ambulating normally Voiding: no voiding problems Passing Gas:: Yes Diet Tolerance:: regular diet Lochia:: Small Feeding Type:: breast feeding (and supplementing with bottle) Current Pain Level(1-10): 0 Respiratory: no cough and no dyspnea Cardiovascular: no chest pain Breast: no problem reported Gastrointestinal: no nausea and no vomiting Genitourinary (male): no difficulty urinating Lochia decreasing Psychiatric: no depression Physical Exam Vital Signs (Past 24 Hours) Last Vital Signs Temp 36.6 C 10/12/18 23:10 Pulse 67 10/12/18 23:10 Resp 18 10/12/18 23:10 BP 114/66 10/12/18 23:10 Pulse Ox 99 10/12/18 19:03 Constitutional WD/WN, vitals as above no acute distress Respiratory normal respiratory effort and able to speak in complete sentences; no respiratory distress and does not use accessory muscles Cardiovascular Rate/Rhythm: regular rate and regular rhythm Extremities: no calf tenderness Negative Anila's Gastrointestinal (Abdomen) Inspection/Auscultation: + abdominal surgical incision (C/D/I with steri strips) Post-gravid, fundus firm at umbilicus Psychiatric Affect: euthymic affect Genitourinary Speculum/Bimanual Exam: uterus nontender
[2018-10-13] MEDS: PRENATAL VITAMIN 1 TAB PO SCH (09:20)
[2018-10-13] MEDS: FERROUS SULFATE 325 MG TAB PO SCH (09:20)
[2018-10-13] MEDS: DOCUSATE SODIUM 100 MG CAP PO SCH (09:20)
[2018-10-13] MEDS: SIMETHICONE 80 MG CHEW PO SCH ×2 (09:20→12:57)
--- NOTE | 2018-10-17 07:48 | Discharge Summary ---
Date of Service October 17, 2018 Patient had a section on Oct 09 2018 she was ready for discharge on October 13, 2018 at that time she was assessed by my partner Dr. Rodriguez patient was ambulating well tolerating oral diet pain was well controlled she was able to void was passing flatus and had no extremity pain Admission Exam (Per Admitting) Constitutional WD/WN, vitals as above Cardiovascular RRR, no murmur, no edema Genitourinary Uterus was firm nontender bleeding was minimal extremity exam negative Discharge Data Consultations 10/10/18 05:32 Consult Anesthesiology Stat Procedures Performed Operation Date: 10/10/18 07:30 Actual Procedures s with Bilateral Tubal Ligation - Terri Nuñez MD, FACOG p Section in LD; LIVE MALE AT 0803(Bilateral) - Terri Nuñez MD, FACOG Hospital Course (1) delivery delivered: Patient met discharge criteria instructions were given prescriptions were given
== END 2018-10-13 13:46 | disposition home or self-care (01) | DRG 784 ==
LOC: 4S1 05:28 → EDSTATUS 09:15 → 4S2 11:05
PROC: M.PPTLD (2018-10-10 07:30)
DX: M46.90 Unspecified inflammatory spondylopathy, site unspecified; Z30.2 Encounter for sterilization; O26.891 Other specified pregnancy related conditions, first trimester; Z37.0 Single live birth; O99.214 Obesity complicating childbirth; Z3A.39 39 weeks gestation of pregnancy; E66.01 Morbid (severe) obesity due to excess calories; Z68.41 Body mass index [BMI] 40.0-44.9, adult; O24.12 Pre-existing type 2 diabetes mellitus, in childbirth

== ENCOUNTER 2020-07-23 08:22 | Observation (INO) ==
[2020-07-23] MEDS ORDERED: ONDANSETRON INJ 2 MG/ML 2 ML VIAL IV STA ×2 (08:53→14:19)
[2020-07-23] MEDS ORDERED: SODIUM CHLORIDE 0.9% 1000ML 1,000 ML IV STA (08:53)
--- NOTE | 2020-07-23 09:02 | Emergency Department Note ---
ED Visit Note This patient was seen in concert with Dr. Bustillos and we discussed and agreed upon the history, physical, assessment, and plan. See attending's note for details. . Resident Activity Tracking Resident Involvement: Resident Care Provided Care Provided: Adult ED
[2020-07-23 09:22] LABS: Basophils # (auto) 0.04 K/uL (0-0.2); Basophils % (auto) 0.3 %; Eosinophils # (auto) 0.09 K/uL (0-0.5); Eosinophils % (auto) 0.7 %; Hematocrit (blood only) 34.6 % (37-47); Hemoglobin 11.2 g/dL (12.0-16.0); Immature Granulocytes # (auto) 0.07 K/uL (0.00-0.02); Immature Granulocytes % (auto) 0.5 %; Lymphocytes # (auto) 2.24 K/uL (1.2-3.4); Lymphocytes % (auto) 16.3 %; Mean Corpuscular Hemoglobin 25.3 pg (25-34); Mean Corpuscular Hgb Conc 32.4 g/dL (32-36); Mean Corpuscular Volume 78.1 fL (80-100); Mean Platelet Volume 8.5 fL (7.4-10.4); Monocytes # (auto) 0.55 K/uL (0.11-0.59); Neutrophils # (auto) 10.73 K/uL (1.4-6.5); Neutrophils % (auto) 78.2 %; Platelet Count 452 K/uL (130-400); RDW Coefficient of Variation 14.2 % (11.5-14.5); RDW Standard Deviation 40.4 fL (36.4-46.3); Red Blood Count 4.43 M/uL (4.2-5.4); White Blood Count 13.72 K/uL (4.8-10.8)
--- NOTE | 2020-07-23 09:30 | Emergency Department Note ---
Impression & Plan Gallstones, Right upper quadrant abdominal pain ED Provider Note NAME: PAULINE SCHROEDER AGE: 39 SEX: F : 1980 ARRIVES VIA: Walk-In INFORMANT: Patient, ED PROVIDER(S): Humberto Bustillos DO CHIEF COMPLAINT: Abdominal pain HPI: The patient is a 39-year-old female who presented to the emergency department for an evaluation of right upper quadrant abdominal pain. The patient states that she has had similar episodes in the past but they are very short-lived and did not continue to worsen. She states that at 3:00 this morning she started having very severe right upper quadrant abdominal pain and the pain is not resolved since it started this morning. She states the pain is worsened with ambulation as well as palpation in the right upper quadrant. She notices the pain in her right upper chest as well as her right back. She denies having any difficulty breathing but she states that sometimes the pain is worsened with deep inspiration. The patient has never had any problems with her gallbladder before. She denies having any hematemesis but has had some yellow emesis associated with the pain. She denies having any lower abdominal pain or diarrhea. She has had no vaginal bleeding or discharge. She has not seen a provider prior to coming to the emergency department. ROS: See above HPI for pertinent positives & negatives. A total of 10 systems reviewed and were otherwise negative. PAST MEDICAL HISTORY: See Below PAST SURGICAL HISTORY: See Below FAMILY HISTORY: See Below SOCIAL HISTORY: See Below HOME MEDICATIONS: See Below ALLERGIES: See Below VITALS: See Below PHYSICAL EXAMINATION: GENERAL: The patient is awake and alert. The patient is very anxious appearing and appears to be in severe pain. EYES: The conjunctivae are clear. The pupils are round and reactive. EARS, NOSE, MOUTH AND THROAT: The nose is without any evidence of any deformity. Mucous membranes are moist. Tongue is midline. NECK: The neck is nontender and supple. RESPIRATORY: Normal respiratory effort is noted there is no evidence of wheezing rhonchi or rales CARDIOVASCULAR: Regular rate and rhythm noted there no murmurs rubs or gallops normal S1 normal S2. GASTROINTESTINAL: The abdomen is moderately distended with significant right upper quadrant tenderness to palpation. There is guarding in the right upper quadrant. MUSCULOSKELETAL/EXTREMITIES: There is no evidence of gross deformity full range of motion is noted in the hips and shoulders. SKIN: There is no obvious evidence of any rash. There are no petechiae, pallor or cyanosis noted. NEUROLOGIC: Patient is awake alert and oriented x3. MEDICAL DECISION MAKING: The patient is a 39-year-old female who presented to the emergency department for an evaluation of abdominal pain. The patient appears to have significant right upper quadrant abdominal pain on physical exam. History and physical exam do appear to be consistent with possible gallbladder pathology. LFTs were not significantly elevated with the exception of a mild elevation in her alk phos. Ultrasound did not appear to be consistent with cholecystitis but she does have gallstones. The patient was treated with IV fluids and IV pain medication. She was reevaluated multiple times. On subsequent reevaluation she was found to have significant right upper quadrant abdominal pain. Given her exam we discussed her case with the on-call general surgical group. They have agreed to evaluate the patient in the emergency department for further management and disposition. Triage Nursing notes reviewed. Prior medical records reviewed Vital Signs: reviewed and remarkable for elevated blood pressure. Differential diagnosis: Appendicitis, ovarian cyst, ovarian torsion, ectopic , TOA, PID, infections, diverticulitis, UTI, obstruction, mesenteric ischemia, aortic pathology, inflammatory bowel disease, renal colic, PUD, pancreatitis, biliary pathology, hernia, volvulus, constipation, as well as other pathologies. ER treatment provided: See below Diagnostics interpreted by me: ECG: EKG was obtained in the emergency department. My interpretation is normal sinus rhythm at 68 bpm. There was no ectopy. There was no acute ST segment abnormalities noted. This was compared to a tracing from March 172018. No significant changes were noted. Cardiac Monitoring: An order was placed for continuous cardiac monitoring. The monitor shows a rate of 85 bpm with sinus rhythm. Laboratory studies: As stated above and show below. Imaging studies: See below Consultation(s): I discussed this case with Dr. Boothe who is on-call for the general surgical group. He will evaluate the patient in the emergency department for further management and disposition. Past Med/Surg History Medical History delivery delivered Chronic back pain Degenerative disc disease Delivery by elective section Diabetes mellitus, type 2 Fibromyalgia GERD (gastroesophageal reflux disease) CONTROLLED History of shingles Lumbar radiculopathy Morbid obesity Osteoarthritis Surgical History H/O oral surgery History of appendectomy History of carpal tunnel release of both wrists History of section History of colonoscopy History of esophagogastroduodenoscopy (EGD) History of tonsillectomy and adenoidectomy History of tooth extraction History of wisdom tooth extraction Family History Father Family history of diabetes mellitus Denies family history of Ovarian cancer Prostate cancer Myocardial infarction Breast cancer Colorectal cancer Social History Smoking Status: Former smoker Years Smoked: 15; Second Hand Exposure: Yes; Hx Alcohol Use: No Hx Substance Use: No Preferred Language: Somali Communication Ability: Effective Rn Clinical Review Required: No Beliefs That Will Affect Care: None marital status: Single Current Living Situation: Significant Other current occupational status: employed current occupation: [employer] How many Children do You have: 1 Feels Safe at Home: Yes Childhood Exposure to Second-Hand Smoke: Yes caffeine: Yes Dental Care, Regularly: Yes Physical Activity Frequency: Daily Seatbelt Use: always Sunscreen Use: No Assistive Devices: Denture - Upper and Glasses Allergies Allergies Allergy/AdvReac Type Severity Reaction Status Date / Time No Known Allergies Allergy Verified 07/23/20 10:29 Home Meds Home Medications Medication Instructions Recorded Confirmed cyclobenzaprine 10 mg PO TID PRN 12/04/18 07/23/20 hydrocodone 5 mg-acetaminophen 325 1 tab PO Q12 PRN tab 02/26/19 07/23/20 mg tablet pregabalin 200 mg PO BID 03/17/19 07/23/20 tizanidine 4 mg PO Q8 PRN 03/17/19 07/23/20 omeprazole 40 mg PO BID 07/23/20 07/23/20 sitagliptin [Januvia] 50 mg PO QAM 07/23/20 07/23/20 Previous Rx's Medication Instructions Recorded atorvastatin 20 mg tablet 20 mg PO QPM #30 tab 03/25/20 albuterol sulfate 90 mcg/actuation 2 puff INHALATION Q6H PRN #8.5 g 07/02/20 aerosol inhaler famotidine 40 mg tablet 40 mg PO BID PRN #60 tab 07/07/20 Results & Data (ED) Vital Signs Vital Signs - 24 hr 07/23/20 08:28 07/23/20 08:43 07/23/20 08:49 Temperature 36.5 C 37.1 C Temperature Source Temporal Artery Scan Oral Pulse Rate 76 79 Pulse Rate [Right Finger] 89 Pulse Rate from SpO2 Sensor 78 Respiratory Rate 18 24 17 Respiratory Effort / Characteristics Non-Labored Spontaneous Spontaneous Short of Breath SOB on Exertion Respiratory Depth Normal Normal Respiratory Pattern Regular Tachypnea Blood Pressure 165/89 H 173/108 H Blood Pressure [Right Arm] 173/108 H Blood Pressure Mean 114 129 Blood Pressure Mean [Right Arm] 129 Blood Pressure Position Sitting Blood Pressure Position [Right Arm] Sitting Pulse Oximetry 100 97 98 Oxygen Delivery Method Room Air Room Air Sepsis Recent Fever Within 48 Hours No Sepsis New/Unexplained Change in Mental Status N/A Sepsis Action Taken by Nursing No Action Required 07/23/20 09:34 07/23/20 09:39 07/23/20 10:01 Temperature Temperature Source Pulse Rate 65 66 72 Pulse Rate [Right Finger] Pulse Rate from SpO2 Sensor 65 72 Respiratory Rate 18 22 22 Respiratory Effort / Characteristics Respiratory Depth Respiratory Pattern Blood Pressure 137/88 164/98 H Blood Pressure [Right Arm] Blood Pressure Mean 104 120 Blood Pressure Mean [Right Arm] Blood Pressure Position Blood Pressure Position [Right Arm] Pulse Oximetry 96 96 97 Oxygen Delivery Method Room Air Room Air Sepsis Recent Fever Within 48 Hours Sepsis New/Unexplained Change in Mental Status Sepsis Action Taken by Nursing 07/23/20 11:32 07/23/20 12:01 07/23/20 12:31 Temperature Temperature Source Pulse Rate 66 72 80 Pulse Rate [Right Finger] Pulse Rate from SpO2 Sensor 68 72 79 Respiratory Rate 24 27 H 79 H Respiratory Effort / Characteristics Respiratory Depth Respiratory Pattern Blood Pressure 139/86 152/94 H 158/84 H Blood Pressure [Right Arm] Blood Pressure Mean 103 113 108 Blood Pressure Mean [Right Arm] Blood Pressure Position Blood Pressure Position [Right Arm] Pulse Oximetry 99 98 98 Oxygen Delivery Method Room Air Room Air Sepsis Recent Fever Within 48 Hours Sepsis New/Unexplained Change in Mental Status Sepsis Action Taken by Nursing 07/23/20 13:26 07/23/20 13:31 07/23/20 14:27 Temperature Temperature Source Pulse Rate 77 71 70 Pulse Rate [Right Finger] Pulse Rate from SpO2 Sensor 78 71 68 Respiratory Rate 19 25 H 16 Respiratory Effort / Characteristics Respiratory Depth Respiratory Pattern Blood Pressure 153/89 H 139/111 H 172/97 H Blood Pressure [Right Arm] Blood Pressure Mean 110 120 122 Blood Pressure Mean [Right Arm] Blood Pressure Position Blood Pressure Position [Right Arm] Pulse Oximetry 100 100 93 Oxygen Delivery Method Sepsis Recent Fever Within 48 Hours Sepsis New/Unexplained Change in Mental Status Sepsis Action Taken by Nursing 07/23/20 14:30 07/23/20 15:00 Temperature Temperature Source Pulse Rate 70 73 Pulse Rate [Right Finger] Pulse Rate from SpO2 Sensor 70 72 Respiratory Rate 17 19 Respiratory Effort / Characteristics Respiratory Depth Respiratory Pattern Blood Pressure 151/95 H 180/97 H Blood Pressure [Right Arm] Blood Pressure Mean 113 124 Blood Pressure Mean [Right Arm] Blood Pressure Position Blood Pressure Position [Right Arm] Pulse Oximetry 95 92 Oxygen Delivery Method Sepsis Recent Fever Within 48 Hours Sepsis New/Unexplained Change in Mental Status Sepsis Action Taken by Custodial Medications Current Medication List: was personally reviewed by me Laboratory Data Attestation: I reviewed the patient's lab results. Result diagrams: 07/23/20 09:12 07/23/20 09:12 Lab Results 07/23/20 07/23/20 07/23/20 Range/Units 09:12 09:12 09:12 WBC 13.72 H (4.8-10.8) K/uL RBC 4.43 (4.2-5.4) M/uL Hgb 11.2 L (12.0-16.0) g/dL Hct 34.6 L (37-47) % MCV 78.1 L (80-100) fL MCH 25.3 (25-34) pg MCHC 32.4 (32-36) g/dL RDW Std Deviation 40.4 (36.4-46.3) fL RDW Coeff of Bandar 14.2 (11.5-14.5) % Plt Count 452 H (130-400) K/uL MPV 8.5 (7.4-10.4) fL Immature Gran % (Auto) 0.5 % Neut % (Auto) 78.2 % Lymph % (Auto) 16.3 % [place] % (Auto) 4.0 % Eos % (Auto) 0.7 % Baso % (Auto) 0.3 % Neut # (Auto) 10.73 H (1.4-6.5) K/uL Lymph # (Auto) 2.24 (1.2-3.4) K/uL [place] # (Auto) 0.55 (0.11-0.59) K/uL Eos # (Auto) 0.09 (0-0.5) K/uL Baso # (Auto) 0.04 (0-0.2) K/uL Immature Gran # (Auto) 0.07 H (0.00-0.02) K/uL Sodium 136 (136-145) mmol/L Potassium 3.9 (3.5-5.1) mmol/L Chloride 105 (98-107) mmol/L Carbon Dioxide 24 (21-32) mmol/L Anion Gap 6.0 (3-11) BUN 10 (7-18) mg/dl Creatinine 0.99 (0.6-1.2) mg/dl Est Cr Clr Drug Dosing 118.5 ml/min Est GFR ( Amer) 83.8 Est GFR (Non-Af Amer) 72.3 BUN/Creatinine Ratio 9.6 L (10-20) Glucose 121 H (70-99) mg/dl Calcium 9.3 (8.5-10.1) mg/dl Total Bilirubin 0.3 (0.2-1) mg/dl AST 18 (15-37) U/L ALT 30 (12-78) U/L Alkaline Phosphatase 136 H (45-117) U/L Total Protein 8.7 H (6.4-8.2) gm/dl Albumin 3.6 (3.4-5.0) gm/dl Globulin 5.1 H (2.5-4.0) gm/dl Albumin/Globulin Ratio 0.7 L (0.9-2) Lipase 89 (73-393) U/L HCG, Qual Negative (Negative) Urine Color Urine Appearance (Clear) Urine pH (4.5-7.5) Ur Specific [place] (1.000-1.030) Urine Protein (Negative) Urine Glucose (UA) (Negative) Urine Ketones (Negative) Urine Blood (Negative) Urine Nitrite (Negative) Urine Bilirubin (Negative) Urine Urobilinogen (Negative) Ur Leukocyte Esterase (Negative) COVID-19 Eval Order SARS-CoV-2, RNA, NAAT (NEGATIVE) 07/23/20 07/23/20 07/23/20 Range/Units 09:37 14:21 14:21 WBC (4.8-10.8) K/uL RBC (4.2-5.4) M/uL Hgb (12.0-16.0) g/dL Hct (37-47) % MCV (80-100) fL MCH (25-34) pg MCHC (32-36) g/dL RDW Std Deviation (36.4-46.3) fL RDW Coeff of Bandar (11.5-14.5) % Plt Count (130-400) K/uL MPV (7.4-10.4) fL Immature Gran % (Auto) % Neut % (Auto) % Lymph % (Auto) % [place] % (Auto) % Eos % (Auto) % Baso % (Auto) % Neut # (Auto) (1.4-6.5) K/uL Lymph # (Auto) (1.2-3.4) K/uL [place] # (Auto) (0.11-0.59) K/uL Eos # (Auto) (0-0.5) K/uL Baso # (Auto) (0-0.2) K/uL Immature Gran # (Auto) (0.00-0.02) K/uL Sodium (136-145) mmol/L Potassium (3.5-5.1) mmol/L Chloride (98-107) mmol/L Carbon Dioxide (21-32) mmol/L Anion Gap (3-11) BUN (7-18) mg/dl Creatinine (0.6-1.2) mg/dl Est Cr Clr Drug Dosing ml/min Est GFR ( Amer) Est GFR (Non-Af Amer) BUN/Creatinine Ratio (10-20) Glucose (70-99) mg/dl Calcium (8.5-10.1) mg/dl Total Bilirubin (0.2-1) mg/dl AST (15-37) U/L ALT (12-78) U/L Alkaline Phosphatase (45-117) U/L Total Protein (6.4-8.2) gm/dl Albumin (3.4-5.0) gm/dl Globulin (2.5-4.0) gm/dl Albumin/Globulin Ratio (0.9-2) Lipase (73-393) U/L HCG, Qual (Negative) Urine Color Yellow Urine Appearance Clear (Clear) Urine pH 8.5 H (4.5-7.5) Ur Specific [place] 1.014 (1.000-1.030) Urine Protein Negative (Negative) Urine Glucose (UA) Negative (Negative) Urine Ketones Negative (Negative) Urine Blood Negative (Negative) Urine Nitrite Negative (Negative) Urine Bilirubin Negative (Negative) Urine Urobilinogen Negative (Negative) Ur Leukocyte Esterase Negative (Negative) COVID-19 Eval Order Covid19 [facility] SARS-CoV-2, RNA, NAAT NEGATIVE (NEGATIVE) Administered Medications Morphine Sulfate (Morphine Sulfate 4 Mg/Ml 1 Ml Carp\Vial) 4 mg IV Q15M PRN PRN Reason: Pain Stop: 08/06/20 08:52 Last Admin: 07/23/20 14:23 Dose: 4 mg Documented by: [id number] Admin: 07/23/20 11:27 Dose: 4 mg Documented by: [id number] Admin: 07/23/20 09:33 Dose: 4 mg Documented by: [id number] Discontinued Medications Sodium Chloride (Nss 1000ml) 1,000 mls @ 999 mls/hr IV .Q1H1M STA Stop: 07/23/20 09:53 Last Infusion: 07/23/20 12:21 Dose: 0 mls/hr Documented by: [id number] Admin: 07/23/20 09:32 Dose: 999 mls/hr Documented by: [id number] Ondansetron HCl (Ondansetron Inj 2 Mg/Ml 2 Ml Vial) 4 mg IV NOW STA Stop: 07/23/20 08:54 Last Admin: 07/23/20 09:33 Dose: 4 mg Documented by: [id number] Ondansetron HCl (Ondansetron Inj 2 Mg/Ml 2 Ml Vial) 4 mg IV NOW STA Stop: 07/23/20 14:20 Last Admin: 07/23/20 14:23 Dose: 4 mg Documented by: [id number] Imaging Data Radiologist's Impression: Patient: PAULINE SCHROEDER Admit Date: 07/23/20 MR#: [id number] Address1: [address] [place] [address] Acct ID:[id number] Address2: Date: 1980 [facility] Zip: [place] [address] Age: 39 Location: ED Sex: F Room/Bed: Att Phy: Diagnosis: SOB, ABDOMINAL PAIN Luna Phy: Smitha Brown PA-C Service Date: 07/23/20 [facility] Phy: Interpreting Phy: Michael Singleton MD Admit Phy: Ordering Phy: Humberto Bustillos DO cc: ~ XR chest 1V not portable CLINICAL HISTORY: Right upper quadrant abdominal pain COMPARISON STUDY: 06/03/2019 FINDINGS: The cardiac and mediastinal contours are normal. There is no evidence of focal pulmonary consolidation. There is no evidence of failure. No pleural effusions are visualized.[Slight increased density at the left lateral lung base is felt to be secondary to overlying breast tissue. There is no free intraperitoneal air. IMPRESSION: No active disease in the chest. ACT 112: Negative or not required by law. Electronically signed by: Michael Singleton M.D. 07/23/2020 2:11 PM Dictated: 07/23/20 1410 Transcribed: 07/23/20 1410 Patient: PAULINE SCHROEDER Admit Date: 07/23/20 MR#: [id number] Address1: [address] [place] [address] Acct ID:[id number] Address2: Date: 1980 [facility]: [facility] [place] [address] Age: 39 Location: ED Sex: F Room/Bed: Att Phy: Diagnosis: SOB, ABDOMINAL PAIN Luna Phy: Smitha Brown PA-C Service Date: 07/23/20 [facility] Phy: Interpreting Phy: Douglas Ulloa Admit Phy: Ordering Phy: Moreno Cyr MD cc: ~ KUB HISTORY: Acute right upper quadrant abdominal pain Abd pain COMPARISON: Chest radiograph of same day, acute abdominal series radiographs 06/06/2017 FINDINGS: Nonobstructive bowel gas pattern. Moderate fecal retention of the ascending and transverse colon. Unchanged 3 mm right pelvic basin phlebolith. No renal calculi. No ureteral calculi. No pneumoperitoneum or pneumatosis. Posterior interbody everett and screw fusion with discectomy changes at L4-L5. No fracture. IMPRESSION: Nonobstructive bowel gas pattern. ACT 112: Negative or not required by law. The above report was generated using voice recognition software. It may contain grammatical, syntax or spelling errors. Electronically signed by: Khoi Ulloa M.D. 07/23/2020 2:29 PM Dictated: 07/23/201426 Transcribed: 07/23/201426 Patient: PAULINE SCHROEDER Admit Date: 07/23/20 MR#: [id number] Address1: [address] [place] [address] Acct ID:[id number] Address2: Date: 1980 [facility] Zip: [place] [address] Age: 39 Location: ED Sex: F Room/Bed: Att Phy: Diagnosis: SOB, ABDOMINAL PAIN Luna Phy: Smitha Brown PA-C Service Date: 07/23/20 [facility] Phy: Interpreting Phy: Douglas Ulloa Admit Phy: Ordering Phy: Moreno Cyr MD cc: ~ US gallbladder HISTORY: 39 years-old Female RUQ abd pain acute right upper quadrant abdominal pain with vomiting COMPARISON: CTA chest 03/17/2019 TECHNIQUE: Multiple real-time sonographic images of the abdominal right upper quadrant were obtained assessing grayscale appearance and color flow FINDINGS: Limited exam secondary to obscuring bowel gas and patient body habitus. Visualized pancreas is unremarkable. Echogenic liver with poor through transmission. No hepatic mass or marginal nodularity. 1.2 cm dependent gallstone within the mid gallbladder lumen. No bladder wall thickening or pericholecystic fluid. Sonographic Trotter sign was not reported. Normal common bile duct, 4 mm. Imaged right kidney is unremarkable without hydronephrosis. IMPRESSION: 1. Limited exam as above. 2. Cholelithiasis without sonographic evidence of acute cholecystitis. 3. No biliary ductal dilation. 4. Hepatic steatosis. ACT 112: Negative or not required by law. The above report was generated using voice recognition software. It may contain grammatical, syntax or spelling errors. Electronically signed by: Khoi Ulloa M.D. 07/23/2020 10:45 AM Dictated: 07/23/20 104 Transcribed: 07/23/201043 Discharge Plan Visit Data Chief Complaint: Shortness of Breath/Dyspnea Stated Complaint: SOB, ABDOMINAL PAIN ED Provider: Humberto Bustillos ED Midlevel Provider: Moreno Cyr Discharge Problem: Gallstones, Right upper quadrant abdominal pain Patient Disposition: Being Evaluated by Surgeon Condition: Good Forms Stand Alone Forms: My [facility] Prescriptions Prescriptions: No Action atorvastatin 20 mg tablet 20 mg PO QPM Qty: 30 RF: 2 famotidine [Pepcid] 40 mg tablet 40 mg PO BID PRN (Reason: acid reflux) Qty: 60 RF: 2 hydrocodone-acetaminophen 5-325 mg tablet 1 tab PO Q12 PRN (Reason: Pain) RF: 0 albuterol sulfate 90 mcg/actuation HFA aerosol inhaler 2 puff inhalation Q6H PRN (Reason: shortness of breath or wheezing) Qty: 8.5 RF: 2 cyclobenzaprine 10 mg Tablet 10 mg PO TID PRN (Reason: Muscle Spasm) RF: 0 tizanidine 4 mg tablet 4 mg PO Q8 PRN (Reason: Muscle Spasm) RF: 0 pregabalin 200 mg capsule 200 mg PO BID RF: 0 omeprazole 40 mg capsule,delayed release(DR/EC) 40 mg PO BID RF: 0 Januvia 50 mg tablet 50 mg PO QAM RF: 0 Referrals Referrals: Smitha Brown PA-C [Primary Care Provider] -
[2020-07-23] MEDS: MoRPHine SULFATE 4 MG/ML 1 ML CARP\\VIAL IV PRN ×3 (09:33→14:23)
[2020-07-23 09:39] LABS: Albumin Level 3.6 gm/dl (3.4-5.0); BUN Creatinine Ratio 9.6 (10-20); Calcium 9.3 mg/dl (8.5-10.1); Creatinine Clr Calc Pharmacy 118.5 ml/min; Est GFR (African American) 83.8; Est GFR (Non-African American) 72.3; Potassium 3.9 mmol/L (3.5-5.1)
[2020-07-23 09:42] LABS: Albumin Globulin Ratio 0.7 (0.9-2); Bilirubin,Total 0.3 mg/dl (0.2-1); Globulin 5.1 gm/dl (2.5-4.0); Total Protein 8.7 gm/dl (6.4-8.2)
[2020-07-23 09:44] LABS: Appearance Urine Clear (Clear); Bilirubin Urine Negative (Negative); Blood Urine Negative (Negative); Color Urine Yellow; Glucose Urine UA Negative (Negative); Ketones Urine Negative (Negative); Leukocyte Esterase Urine Negative (Negative); Nitrite Urine Negative (Negative); Protein Urine Negative (Negative); Specific Gravity Urine 1.014 (1.000-1.030); Urobilinogen Urine Negative (Negative); pH Urine 8.5 (4.5-7.5)
[2020-07-23 09:58] LABS: Pregnancy Test, Serum Negative (Negative)
--- NOTE | 2020-07-23 10:47 | Ultrasound Report ---
US gallbladder HISTORY: 39 years-old Female RUQ abd pain acute right upper quadrant abdominal pain with vomiting COMPARISON: CTA chest 03/17/2019 TECHNIQUE: Multiple real-time sonographic images of the abdominal right upper quadrant were obtained assessing grayscale appearance and color flow FINDINGS: Limited exam secondary to obscuring bowel gas and patient body habitus. Visualized pancreas is unremarkable. Echogenic liver with poor through transmission. No hepatic mass or marginal nodularity. 1.2 cm dependent gallstone within the mid gallbladder lumen. No bladder wall thickening or pericholecystic fluid. Sonographic Trotter sign was not reported. Normal common bile valentino t, 4 mm. Imaged right kidney is unremarkable without hydronephrosis. IMPRESSION: 1. Limited exam as above. 2. Cholelithiasis without sonographic evidence of acute cholecystitis. 3. No biliary ductal dilation. 4. Hepatic steatosis. ACT 112: Negative or not required by law. The above report was generated using voice recognition software. It may contain grammatical, syntax o r spelling errors. Electronically signed by: Khoi Ulloa M.D. 07/23/2020 10:45 AM
--- NOTE | 2020-07-23 14:12 | XRay Report ---
XR chest 1V not portable CLINICAL HISTORY: Right upper quadrant abdominal pain COMPARISON STUDY: 06/03/2019 FINDINGS: The cardiac and mediastinal contours are normal. There is no evidence of focal pulmonary co nsolidation. There is no evidence of failure. No pleural effusions are visualized.[Slight increased d ensity at the left lateral lung base is felt to be secondary to overlying breast tissue. There is no free intraperitoneal air. IMPRESSION: No active disease in the chest. ACT 112: Negative or not required by law. Electronically signed by: Michael Singleton M.D. 07/23/2020 2:11 PM
--- NOTE | 2020-07-23 14:30 | XRay Report ---
KUB HISTORY: Acute right upper quadrant abdominal pain Abd pain COMPARISON: Chest radiograph of same day, acute abdominal series radiographs 06/06/2017 FINDINGS: Nonobstructive bowel gas pattern. Moderate fecal retention of the ascending and transverse colon. Unchanged 3 mm right pelvic basin phlebolith. No renal calculi. No ureteral calculi. No pneum operitoneum or pneumatosis. Posterior interbody everett and screw fusion with discectomy changes at L4-L5 . No fracture. IMPRESSION: Nonobstructive bowel gas pattern. ACT 112: Negative or not required by law. The above report was generated using voice recognition software. It may contain grammatical, syntax o r spelling errors. Electronically signed by: Khoi Ulloa M.D. 07/23/2020 2:29 PM
--- NOTE | 2020-07-23 15:02 | History & Physical Report ---
Date of Service July 23, 2020 Assessment & Plan (1) Symptomatic cholelithiasis: 31-year-old female with 12-hour history of upper abdominal pain with associated nausea and vomiting. Ultrasound showing 1.2 cm gallstone however no signs of acute cholecystitis. Leukocytosis of 13,000 T bili and LFTs within normal limits. Plan: Discussed ultrasound findings as well as examination findings with patient which may be consistent with gallbladder disease. However given her history of chronic GERD and H. pylori infection she may have upper GI issues and pain might not be resolved completely with cholecystectomy. Patient would like to proceed with cholecystectomy. Discussed laparoscopic procedure possible open. Discussed risk. Informed consent has been obtained. Keep n.p.o. Preop Covid test We will receive preop antibiotic (2) RUQ abdominal pain: Likely secondary to gallstones. (3) Nausea and vomiting: Secondary to gallstones Dr. Boothe has seen and examined patient please see addendum for further recommendations and plan. History of Present Illness Chief Complaint: Upper abdominal pain, gallstones Primary Care Provider: Smitha Brown PA-C Carmen is a 39-year-old female past medical history including morbid obesity, diabetes, hyperlipidemia, GERD, chronic back pain who presented to the emergency room with complaint of upper abdominal pain that started at 3 AM this morning. She states the pain woke her up and was severe. She states that she has had this pain in the past but usually lasts 2 to 3 hours and then resolves on its own. The pain has been persistent and severe in nature. Associated nausea and vomiting. She states that she felt warm and cold and had some chills but did not take her temperature. She states she has a history of chronic reflux and takes omeprazole daily and famotidine as needed. She states she had a upper scope years ago and had H. pylori infection however no history of gastric or duodenal ulcers that she is aware of. She takes chronic hydrocodone for chronic back pain and has history of constipation. Denies of any diarrhea, blood in the stools, black tarry stools. She states that he did notice pega developer colored stool this morning. Denies of any difficulty urinating or blood in the urine. She has a history of a section in 2019 as well as a appendectomy when she was 13 years old. No other abdominal procedures. No history of blood clots or blood thinners. ER work-up included labs which showed leukocytosis of 13,000. T bili and LFTs within normal limits but alk phos slightly elevated. Ultrasound showed 1.2 cm gallstone however no evidence of gallbladder wall thickening or pericholecystic fluid common bile duct was 4 mm. Allergies Allergy/AdvReac Type Severity Reaction Status Date / Time No Known Allergies Allergy Verified 07/23/20 10:29 Home Medications Medication Instructions Recorded Confirmed Type cyclobenzaprine 10 mg PO TID PRN 12/04/18 07/23/20 History hydrocodone 5 mg-acetaminophen 325 1 tab PO Q12 PRN tab 02/26/19 07/23/20 History mg tablet pregabalin 200 mg PO BID 03/17/19 07/23/20 History tizanidine 4 mg PO Q8 PRN 03/17/19 07/23/20 History atorvastatin 20 mg tablet 20 mg PO QPM #30 tab 03/25/20 07/23/20 Rx albuterol sulfate 90 mcg/actuation 2 puff INHALATION Q6H PRN #8.5 g 07/02/20 07/23/20 Rx aerosol inhaler famotidine 40 mg tablet 40 mg PO BID PRN #60 tab 07/07/20 07/23/20 Rx omeprazole 40 mg PO BID 07/23/20 07/23/20 History sitagliptin [Januvia] 50 mg PO QAM 07/23/20 07/23/20 History Past Med/Surg History Medical History delivery delivered Chronic back pain Degenerative disc disease Delivery by elective section Diabetes mellitus, type 2 Fibromyalgia GERD (gastroesophageal reflux disease) CONTROLLED History of shingles Lumbar radiculopathy Morbid obesity Osteoarthritis Surgical History H/O oral surgery History of appendectomy History of carpal tunnel release of both wrists History of section History of colonoscopy History of esophagogastroduodenoscopy (EGD) History of tonsillectomy and adenoidectomy History of tooth extraction History of wisdom tooth extraction Family History Father Family history of diabetes mellitus Denies family history of Ovarian cancer Prostate cancer Myocardial infarction Breast cancer Colorectal cancer Social History Smoking Status: Former smoker Years Smoked: 15; Second Hand Exposure: Yes; Hx Alcohol Use: No Hx Substance Use: No Preferred Language: Mongolian Communication Ability: Effective Air Traffic Control Supervisor Required: No Beliefs That Will Affect Care: None marital status: Single Current Living Situation: Significant Other current occupational status: employed current occupation: [employer] How many Children do You have: 1 Feels Safe at Home: Yes Childhood Exposure to Second-Hand Smoke: Yes caffeine: Yes Dental Care, Regularly: Yes Physical Activity Frequency: Daily Seatbelt Use: always Sunscreen Use: No Assistive Devices: Denture - Upper and Glasses Review of Systems Review of Systems: All systems reviewed & are unremarkable except as noted in HPI & below Physical Exam Constitutional: well developed, well nourished, + acute distress and + morbidly obese; not ill appearing and not intoxicated appearing Respiratory: normal respiratory effort, lungs clear to auscultation no respiratory distress, no labored breathing and no retractions Cardiovascular: RRR, no murmur, no edema Gastrointestinal (Abdomen): Inspection/Auscultation: abdomen normal to inspection and normal bowel sounds; abdomen not distended Percussion/Palpati on: + abdomen tender (Right upper quadrant and epigastric), + guarding (Right upper quadrant and epigastric) and abdomen soft; abdomen not rigid Skin: no rashes, warm and dry no jaundice Psychiatric: Orientation: alert, oriented x 3 and cooperative Results & Data Results & Data ([facility]) Vital Signs (Past 12 Hours) Vital Signs Temp Pulse Pulse Resp BP BP Pulse Ox 07/23/20 12:31 80 79 H 158/84 H 98 07/23/20 12:01 72 27 H 152/94 H 98 07/23/20 11:32 66 24 139/86 99 07/23/20 10:01 72 22 164/98 H 97 07/23/20 09:39 66 22 96 07/23/20 09:34 65 18 137/88 96 07/23/20 08:49 79 17 173/108 H 98 07/23/20 08:43 37.1 C 89 24 173/108 H 97 07/23/20 08:28 36.5 C 76 18 165/89 H 100 Laboratory Results 07/23/20 07/23/20 07/23/20 Range/Units 14:21 14:21 09:37 WBC (4.8-10.8) K/uL RBC (4.2-5.4) M/uL Hgb (12.0-16.0) g/dL Hct (37-47) % MCV (80-100) fL MCH (25-34) pg MCHC (32-36) g/dL RDW Std Deviation (36.4-46.3) fL RDW Coeff of Bandar (11.5-14.5) % Plt Count (130-400) K/uL MPV (7.4-10.4) fL Immature Gran % (Auto) % Neut % (Auto) % Lymph % (Auto) % [place] % (Auto) % Eos % (Auto) % Baso % (Auto) % Neut # (Auto) (1.4-6.5) K/uL Lymph # (Auto) (1.2-3.4) K/uL [place] # (Auto) (0.11-0.59) K/uL Eos # (Auto) (0-0.5) K/uL Baso # (Auto) (0-0.2) K/uL Immature Gran # (Auto) (0.00-0.02) K/uL Sodium (136-145) mmol/L Potassium (3.5-5.1) mmol/L Chloride (98-107) mmol/L Carbon Dioxide (21-32) mmol/L Anion Gap (3-11) BUN (7-18) mg/dl Creatinine (0.6-1.2) mg/dl Est Cr Clr Drug Dosing ml/min Est GFR ( Amer) Est GFR (Non-Af Amer) BUN/Creatinine Ratio (10-20) Glucose (70-99) mg/dl Calcium (8.5-10.1) mg/dl Total Bilirubin (0.2-1) mg/dl AST (15-37) U/L ALT (12-78) U/L Alkaline Phosphatase (45-117) U/L Total Protein (6.4-8.2) gm/dl Albumin (3.4-5.0) gm/dl Globulin (2.5-4.0) gm/dl Albumin/Globulin Ratio (0.9-2) Lipase (73-393) U/L HCG, Qual (Negative) Urine Color Yellow Urine Appearance Clear (Clear) Urine pH 8.5 H (4.5-7.5) Ur Specific [place] 1.014 (1.000-1.030) Urine Protein Negative (Negative) Urine Glucose (UA) Negative (Negative) Urine Ketones Negative (Negative) Urine Blood Negative (Negative) Urine Nitrite Negative (Negative) Urine Bilirubin Negative (Negative) Urine Urobilinogen Negative (Negative) Ur Leukocyte Esterase Negative (Negative) COVID-19 Eval Order Covid19 IDNow [facility] SARS-CoV-2, RNA, NAAT NEGATIVE (NEGATIVE) 07/23/20 07/23/20 07/23/20 Range/Units 09:12 09:12 09:12 WBC 13.72 H (4.8-10.8) K/uL RBC 4.43 (4.2-5.4) M/uL Hgb 11.2 L (12.0-16.0) g/dL Hct 34.6 L (37-47) % MCV 78.1 L (80-100) fL MCH 25.3 (25-34) pg MCHC 32.4 (32-36) g/dL RDW Std Deviation 40.4 (36.4-46.3) fL RDW Coeff of Bandar 14.2 (11.5-14.5) % Plt Count 452 H (130-400) K/uL MPV 8.5 (7.4-10.4) fL Immature Gran % (Auto) 0.5 % Neut % (Auto) 78.2 % Lymph % (Auto) 16.3 % [place] % (Auto) 4.0 % Eos % (Auto) 0.7 % Baso % (Auto) 0.3 % Neut # (Auto) 10.73 H (1.4-6.5) K/uL Lymph # (Auto) 2.24 (1.2-3.4) K/uL [place] # (Auto) 0.55 (0.11-0.59) K/uL Eos # (Auto) 0.09 (0-0.5) K/uL Baso # (Auto) 0.04 (0-0.2) K/uL Immature Gran # (Auto) 0.07 H (0.00-0.02) K/uL Sodium 136 (136-145) mmol/L Potassium 3.9 (3.5-5.1) mmol/L Chloride 105 (98-107) mmol/L Carbon Dioxide 24 (21-32) mmol/L Anion Gap 6.0 (3-11) BUN 10 (7-18) mg/dl Creatinine 0.99 (0.6-1.2) mg/dl Est Cr Clr Drug Dosing 118.5 ml/min Est GFR ( Amer) 83.8 Est GFR (Non-Af Amer) 72.3 BUN/Creatinine Ratio 9.6 L (10-20) Glucose 121 H (70-99) mg/dl Calcium 9.3 (8.5-10.1) mg/dl Total Bilirubin 0.3 (0.2-1) mg/dl AST 18 (15-37) U/L ALT 30 (12-78) U/L Alkaline Phosphatase 136 H (45-117) U/L Total Protein 8.7 H (6.4-8.2) gm/dl Albumin 3.6 (3.4-5.0) gm/dl Globulin 5.1 H (2.5-4.0) gm/dl Albumin/Globulin Ratio 0.7 L (0.9-2) Lipase 89 (73-393) U/L HCG, Qual Negative (Negative) Urine Color Urine Appearance (Clear) Urine pH (4.5-7.5) Ur Specific [place] (1.000-1.030) Urine Protein (Negative) Urine Glucose (UA) (Negative) Urine Ketones (Negative) Urine Blood (Negative) Urine Nitrite (Negative) Urine Bilirubin (Negative) Urine Urobilinogen (Negative) Ur Leukocyte Esterase (Negative) COVID-19 Eval Order SARS-CoV-2, RNA, NAAT (NEGATIVE) Diagnostic Findings US gallbladder HISTORY: 39 years-old Female RUQ abd pain acute right upper quadrant abdominal pain with vomiting COMPARISON: CTA chest 03/17/2019 TECHNIQUE: Multiple real-time sonographic images of the abdominal right upper quadrant were obtained assessing grayscale appearance and color flow FINDINGS: Limited exam secondary to obscuring bowel gas and patient body habitus. Visualized pancreas is unremarkable. Echogenic liver with poor through transmission. No hepatic mass or marginal nodularity. 1.2 cm dependent gallstone within the mid gallbladder lumen. No bladder wall thickening or pericholecystic fluid. Sonographic Trotter sign was not reported. Normal common bile duct, 4 mm. Imaged right kidney is unremarkable without hydronephrosis. IMPRESSION: 1. Limited exam as above. 2. Cholelithiasis without sonographic evidence of acute cholecystitis. 3. No biliary ductal dilation. 4. Hepatic steatosis. Code Status & VTE Plan VTE Prophylaxis Plan VTE Prophylaxis will be ordered: Yes Supervising Physician Co-Signing Physician Notes I interviewed and examined this patient. I reviewed her laboratory studies and radiology studies. She has a history of symptoms consistent with biliary colic although this episode is much more severe. There is no gallbladder wall thickening however. Her ALT LFTs are normal. I feel that she will benefit from laparoscopic cholecystectomy although she understands that her symptoms may not resolve. I explained to her the laparoscopic cholecystectomy and the possible need to convert to an open procedure. We discussed some of the possible complications and I answered her questions. She has signed a consent form.
[2020-07-23] MEDS ORDERED: MIDAZOLAM HCL 1 MG/ML 2ML VIAL ONE (16:44)
[2020-07-23] MEDS ORDERED: PROPOFOL IV EMULSION 10 MG/ML 20 ML VIAL IV ONE (16:44)
[2020-07-23] MEDS ORDERED: ROCURONIUM BROMIDE 10 MG/ML 5 ML VIAL IV ONE (16:44)
[2020-07-23] MEDS ORDERED: LIDOCAINE HCL 2% 2 ML VIAL/AMP(20MG/ML) INFIL ONE (16:44)
[2020-07-23] MEDS ORDERED: fentaNYL citrate 100 MCG/2 ML VIAL ONE (16:44)
[2020-07-23] MEDS ORDERED: ONDANSETRON INJ 2 MG/ML 2 ML VIAL IV PRN ×2 (16:50→20:21)
[2020-07-23] MEDS ORDERED: HYDROmorphone INJ 2 MG/ML SYR/VIAL IV PRN (16:50)
[2020-07-23] MEDS ORDERED: fentaNYL citrate 100 MCG/2 ML VIAL IV PRN (16:50)
[2020-07-23] MEDS ORDERED: ePHEDrine sulfate 50 MG/ML AMP IV PRN (16:50)
[2020-07-23] MEDS ORDERED: PROMETHAZINE HCL 12.5 MG in SODIUM CHLORIDE 0.9% 50 ML IV PRN (16:50)
[2020-07-23] MEDS ORDERED: ATROPINE SULFATE 0.1 MG/ML 10ML SYR IV PRN (16:50)
--- NOTE | 2020-07-23 16:55 | Anesthesiology Consultation ---
Date of Service July 23, 2020 Assessment & Plan ASA ASA3 Proposed Anesthesia Anesthesia Type: General Risk / Benefits Reviewed With: PT / POA / Parent / Guardian, Accepts Plan and Informed Consent Obtained History Surgery Operation Date: 07/23/20 10:30 Proposed Procedures p Laparoscopic Cholecystectomy - Luis Felipe Boothe MD Height/Weight Height: 5 ft 8 in Weight: 147.8 kg Allergies Allergy/AdvReac Type Severity Reaction Status Date / Time No Known Allergies Allergy Verified 07/23/20 10:29 Medications Home Medications Medication Instructions Recorded Confirmed Last Taken cyclobenzaprine 10 mg PO TID PRN 12/04/18 07/23/20 07/22/20 hydrocodone 5 mg-acetaminophen 325 1 tab PO Q12 PRN tab 02/26/19 07/23/20 07/22/20 21:00 mg tablet pregabalin 200 mg PO BID 03/17/19 07/23/20 07/22/20 tizanidine 4 mg PO Q8 PRN 03/17/19 07/23/20 Unknown atorvastatin 20 mg tablet 20 mg PO QPM #30 tab 03/25/20 07/23/20 07/22/20 albuterol sulfate 90 mcg/actuation 2 puff INHALATION Q6H PRN #8.5 g 07/02/20 07/23/20 07/23/20 aerosol inhaler famotidine 40 mg tablet 40 mg PO BID PRN #60 tab 07/07/20 07/23/20 07/22/20 omeprazole 40 mg PO BID 07/23/20 07/23/20 07/22/20 sitagliptin [Januvia] 50 mg PO QAM 07/23/20 07/23/20 07/22/20 Active Medications Generic Name Dose Route Start Last Admin Trade Name Freq PRN Reason Stop Dose Admin Morphine Sulfate 4 mg 07/23/20 08:53 07/23/20 14:23 Morphine Sulfate 4 Mg/Ml 1 Ml Carp\Vial IV 08/06/20 08:52 4 mg Q15M PRN Administration Pain NPO Date Last Intake of Fluids: 07/23/20 Time Last Intake of Fluids: 05:00 Date Last Intake of Solids: 07/22/20 Time Last Intake of Solids: 18:00 Past Medical History Medical History delivery delivered Chronic back pain Degenerative disc disease Delivery by elective section Diabetes mellitus, type 2 Fibromyalgia GERD (gastroesophageal reflux disease) CONTROLLED History of shingles Lumbar radiculopathy Morbid obesity Osteoarthritis Exercise / Class Metabolic Activity II 4-5 Yardwork/Stairs/Walk up hill Past Family History Family History Father Family history of diabetes mellitus Denies family history of Ovarian cancer Prostate cancer Myocardial infarction Breast cancer Colorectal cancer Past Surgical History Surgical History H/O oral surgery History of appendectomy History of carpal tunnel release of both wrists History of section History of colonoscopy History of esophagogastroduodenoscopy (EGD) History of tonsillectomy and adenoidectomy History of tooth extraction History of wisdom tooth extraction Past Anesthesia History No Hx of Anesthesia Complications and No Family Hx of Anesthesia Complications History of PONV No Hx of PONV and No Hx of Motion Sickness Social History Smoking Status: Former smoker Hx Alcohol Use: No Hx Substance Use: No substance use type: does not use Review of Systems denies fever/cough/ colds/ chest pain/ SOB/ AXEL denies AXEL Physical Exam Vital Signs Last Vital Signs Temp 37.1 C 07/23/20 08:43 Pulse 73 07/23/20 15:00 Resp 19 07/23/20 15:00 BP 160/96 H 07/23/20 16:31 Pulse Ox 94 07/23/20 16:31 ENMT Mouth: + dentures; no TMJ abnormality and no dentition abnormality Thyromental Distance: > or= 3.5 Finger Breadths Mallampati Class: II Neck neck extension not limited Respiratory normal respiratory effort; no respiratory distress Auscultation: lungs clear to auscultation bilaterally Cardiovascular Rate/Rhythm: regular rate and regular rhythm Neurologic moves all extremities Psychiatric Orientation: alert and oriented x 3 Testing Laboratory Results 07/23/20 09:12 07/23/20 09:12 Urine Color Yellow 07/23/20 09:37 Urine Appearance Clear (Clear) 07/23/20 09:37 Urine pH 8.5 (4.5-7.5) H 07/23/20 09:37 Ur Specific [place] 1.014 (1.000-1.030) 07/23/20 09:37 Urine Protein Negative (Negative) 07/23/20 09:37 Urine Glucose (UA) Negative (Negative) 07/23/20 09:37 Urine Ketones Negative (Negative) 07/23/20 09:37 Urine Nitrite Negative (Negative) 07/23/20 09:37 Ur Leukocyte Esterase Negative (Negative) 07/23/20 09:37
[2020-07-23] MEDS ORDERED: BUPIVACAINE 0.5 % 5 MG/1 ML MPF 30ML VIAL ONE (16:56)
[2020-07-23] MEDS ORDERED: HEPARIN (PORCINE) 1000 UNIT/ML 10 ML (CATH LAB USE ONLY) ONE (16:56)
[2020-07-23] MEDS ORDERED: cefOXitin 2,000 MG in DEXTROSE 5% 50 ML IV STA (16:59)
[2020-07-23] MEDS ORDERED: NEOSTIGMINE METHYLSULFATE 5 MG/5 ML SYR ONE (17:29)
[2020-07-23] MEDS ORDERED: ONDANSETRON INJ 2 MG/ML 2 ML VIAL ONE (17:29)
[2020-07-23] MEDS ORDERED: HYDROmorphone INJ 2 MG/ML SYR/VIAL ONE (17:29)
[2020-07-23] MEDS ORDERED: GLYCOPYRROLATE 0.2 MG/ML VIAL ONE ×2 (17:29→18:31)
--- NOTE | 2020-07-23 19:00 | Post Operative Brief Note ---
Immediate Post Op Note v1 Date of Surgery July 23, 2020 Pre & Post Diagnosis Operation Date: 07/23/20 10:30 Pre-Op Diagnosis: Symptomatic cholelithiasis Post-Op Diagnosis: Symptomatic cholelithiasis I identified the patient and participated in the time-out.: Yes Procedure Operation Date: 07/23/20 10:30 Actual Procedures p Laparoscopic Cholecystectomy - Luis Felipe Boothe MD Surgeon Luis Felipe Boothe MD Net Development Manager None Estimated Blood Loss 5 Findings Consistent with Post-Op Diagnosis
--- NOTE | 2020-07-23 20:11 | Operative Report (OR) ---
DATE OF OPERATION: 07/23/2020 PREOPERATIVE DIAGNOSES: Acute cholecystitis, cholelithiasis. POSTOPERATIVE DIAGNOSES: Acute cholecystitis, cholelithiasis. PROCEDURE: Laparoscopic cholecystectomy. SURGEON: Luis Felipe Boothe MD. FINDINGS: The gallbladder was markedly distended. The wall was not thickened. There was a lot of edema in the surrounding tissues of the gallbladder and between the gallbladder and the liver bed. There was cholelithiasis noted. The liver was of normal size and contour and the visible bowel appeared normal. TECHNIQUE: The patient was given a general anesthetic and the area was prepped and draped in the usual sterile fashion. Skin inferior to the umbilicus was anesthetized with 1% Xylocaine without epinephrine. Skin incision was made and was carried down through the subcutaneous tissue to the fascia, which was grasped with 2 Luciana clamps and incised between. The peritoneum was identified, incised and introducer was placed bluntly. The abdomen was then insufflated to a pressure of 15 mmHg with carbon dioxide. The site for the upper midline, midclavicular and anterior axillary introducers were chosen. The skin was anesthetized. Incisions were made and the introducers were placed under direct vision. The patient was placed in steep reverse Trendelenburg position and airplaned left position. The gallbladder could not be grasped and so the drainage needle was introduced through the midclavicular introducer and passed down to the gallbladder under direct vision. The gallbladder was drained of white bile. Gallbladder was then able to be grasped and elevated. I then opened the peritoneum on the inferior aspect of the infundibulum and neck of the gallbladder and peeled it towards the common bile duct. I then performed a similar dissection anteriorly and then into the triangle of Calot. I divided the peritoneal attachments of the liver in the lower body laterally and then further along the triangle of Calot. There was some adherent lymphatics that were away from the wall of the cystic duct anteriorly. They were clipped and divided. That allowed better mobility of the infundibulum. I then placed more inferior traction and was able to establish a plane between additional connective tissue that was densely adherent to the medial wall of the cystic duct. These were also clipped and divided. That allowed for much better elevation of the infundibulum and neck of the gallbladder and I was able to establish a plane behind the gallbladder and then dissected some of the gallbladder attachments away from the liver laterally and medially. That allowed for a good window. Two clips were placed on the proximal cystic duct, one near the junction with the gallbladder and it was divided. That was elevated. There were additional thickening of the attachments of the gallbladder to the liver bed in dissecting them. The right hepatic artery was noted looping through the triangle of Calot and posterior where the cystic duct had a bend. Careful dissection was then performed of the gallbladder away from the liver laterally, medially and the cystic artery was seen branching from the right hepatic artery. This was isolated, clamped twice proximally and once near the gallbladder and divided. The gallbladder then could be peeled off the liver bed using cautery with very careful in some places millimeter by millimeter dissection as there was not a very good plane. The gallbladder was completely freed, placed into an Endobag and brought out through the upper midline incision. That introducer was replaced. The liver edge was elevated. There was one very small area of oozing from the gallbladder bed of the liver that was easily controlled with cautery. The subdiaphragmatic and subhepatic spaces were irrigated and the irrigation was removed. The area of oozing of the gallbladder bed was inspected and there was no further oozing. The liver was allowed to fall back into its anatomic position and the gas was allowed to escape. The fascia of the umbilical introducer site was closed with interrupted 0 Vicryl and the skin of all the incisions was closed with 4-0 Monocryl in either an interrupted or running subcuticular fashion. The skin was further anesthetized with 0.5% Marcaine. The skin was cleansed, dried, benzoin placed, Steri-Strips applied. Estimated blood loss was 5 mL. Sponge, needle and instrument counts were correct prior to closure. The patient tolerated the surgical procedure without complication and was transferred to recovery. I attest to the content of the Intraoperative Record and any orders documented therein. Any exception s are noted below.
--- NOTE | 2020-07-23 20:12 | Anesthesiology Progress Note ---
Date of Service July 23, 2020 Anesthesia Post Procedure Vital Signs Vital Signs: Temp Pulse Pulse Pulse Pulse Resp BP 07/23/20 19:40 36.6 C 80 12 07/23/20 19:30 75 16 07/23/20 19:20 74 12 07/23/20 19:10 73 10 L 07/23/20 19:03 37.2 C 91 H 20 07/23/20 16:45 37.1 C 78 18 07/23/20 16:31 160/96 H 07/23/20 16:30 07/23/20 16:06 07/23/20 16:05 146/81 H 07/23/20 15:00 73 19 180/97 H 07/23/20 14:30 70 17 151/95 H 07/23/20 14:27 70 16 172/97 H 07/23/20 13:31 71 25 H 139/111 H 07/23/20 13:26 77 19 153/89 H 07/23/20 12:31 80 79 H 158/84 H 07/23/20 12:01 72 27 H 152/94 H 07/23/20 11:32 66 24 139/86 07/23/20 10:01 72 22 164/98 H 07/23/20 09:39 66 22 07/23/20 09:34 65 18 137/88 07/23/20 08:49 79 17 173/108 H 07/23/20 08:43 37.1 C 89 24 07/23/20 08:28 36.5 C 76 18 165/89 H BP Pulse Ox 07/23/20 19:40 135/82 99 07/23/20 19:30 132/80 98 07/23/20 19:20 123/72 96 07/23/20 19:10 120/73 97 07/23/20 19:03 141/79 H 93 07/23/20 16:45 171/99 H 96 07/23/20 16:31 94 07/23/20 16:30 90 07/23/20 16:06 96 07/23/20 16:05 98 07/23/20 15:00 92 07/23/20 14:30 95 07/23/20 14:27 93 07/23/20 13:31 100 07/23/20 13:26 100 07/23/20 12:31 98 07/23/20 12:01 98 07/23/20 11:32 99 07/23/20 10:01 97 07/23/20 09:39 96 07/23/20 09:34 96 07/23/20 08:49 98 07/23/20 08:43 173/108 H 97 07/23/20 08:28 100 Pain Intensity Abdomen: Pain Intensity: 10 Transfer of Care Handoff Completed per policy Notes Mental Status: alert / awake / arousable and participated in evaluation Patient Amnestic to Procedure: Yes Nausea / Vomiting: adequately controlled Pain: adequately controlled Airway Patency, RR, SpO2: stable & adequate BP & HR: stable & adequate Hydration State: stable & adequate Anesthetic Complications: no major complications apparent and Pt Satisfied with anesthetic care
[2020-07-23] MEDS ORDERED: FAMOTIDINE 40 MG TABLET PO PRN (20:21)
[2020-07-23] MEDS ORDERED: ALBUTEROL HFA 8 GM INHALER INH PRN (20:21)
[2020-07-23] MEDS ORDERED: tiZANidine HCL 4 MG TABLET PO PRN (20:21)
[2020-07-23] MEDS ORDERED: oxyCODONE/ACETAMINOPHEN 5mg/325mg TAB PO PRN (20:21)
[2020-07-23] MEDS ORDERED: SODIUM CHLORIDE 0.9% 1000ML 1,000 ML IV SCH ×2 (20:21)
[2020-07-23] MEDS ORDERED: MoRPHine SULFATE 4 MG/ML 1 ML CARP\\VIAL IV PRN (20:21)
[2020-07-23] MEDS ORDERED: HYDROCODONE/ACETAMOPHEN 5/325MG TAB PO PRN (20:21)
[2020-07-23] MEDS ORDERED: CYCLOBENZAPRINE HCL 10 MG TAB PO PRN (20:24)
[2020-07-23] MEDS ORDERED: ATORVASTATIN 20 MG TAB PO SCH (21:00)
--- NOTE | 2020-07-23 21:03 | Electrocardiogram Report ---
Test Reason : Blood Pressure : / mmHG Vent. Rate : 068 BPM Atrial Rate : 068 BPM P-R Int : 164 ms QRS Dur : 088 ms QT Int : 424 ms P-R-T Axes : 043 050 036 degrees QTc Int : 450 ms Normal sinus rhythm Normal ECG When compared with ECG of 17-MAR-2019 21:17, No significant change Confirmed by Vamsi Grove ([id number]) on 07/23/2020 9:02:46 PM Referred By: REFERRED SELF Confirmed By:Vamsi Grove
[2020-07-23] MEDS: PREGABALIN 100 MG CAP PO SCH (21:49)
[2020-07-23] MEDS: PANTOprazole 40 MG TAB PO SCH (21:50)
[2020-07-24] MEDS: PREGABALIN 100 MG CAP PO SCH (08:00)
[2020-07-24] MEDS: PANTOprazole 40 MG TAB PO SCH (08:00)
[2020-07-24] MEDS ORDERED: SITagliptin PHOSPHATE 25 MG TAB PO SCH (09:00)
--- NOTE | 2020-07-24 10:07 | Surgery Progress Note ---
Date of Service July 24, 2020 Assessment & Plan (1) Right upper quadrant abdominal pain: Postoperative day #1 status post laparoscopic cholecystectomy Doing well Can discharge to home Discussed activity restrictions Follow-up in 2 weeks Admission and Anticipated Discharge Date Admission Date: July 23, 2020 Subjective Postoperative day #1 status post laparoscopic cholecystectomy for acute cholecystitis Feeling well Has what she describes as soreness around the umbilical incision but otherwise very little discomfort No nausea or vomiting Tolerating regular diet Physical Exam Gastrointestinal (Abdomen): Inspection/Auscultation: + abdominal surgical incision (All are clean, dry and intact); abdomen not distended Percussion/Palpation: + abdomen tender (Mild incisional only) and abdomen soft Results & Data ([facility]) Vital Signs (Past 12 Hours) Vital Signs Temp Pulse Pulse Resp BP Pulse Ox 07/24/20 07:38 36.8 C 80 18 119/68 100 07/24/20 05:46 66 18 98 07/24/20 03:38 36.8 C 89 16 106/65 92 07/23/20 23:01 36.6 C 77 16 115/71 97
--- NOTE | 2020-07-26 11:21 | Post Operative Brief Note ---
Immediate Post Op Note v1 Date of Surgery July 26, 2020 Pre & Post Diagnosis Operation Date: 07/23/20 10:30 Pre-Op Diagnosis: Symptomatic cholelithiasis Post-Op Diagnosis: Symptomatic cholelithiasis I identified the patient and participated in the time-out.: Yes Procedure Operation Date: 07/23/20 10:30 Actual Procedures p Laparoscopic Cholecystectomy - Luis Felipe Boothe MD Surgeon Luis Felipe Boothe MD Animal Cruelty Investigator None Estimated Blood Loss 5 Findings Consistent with Post-Op Diagnosis
[2020-07-26] MEDS ORDERED: ONDANSETRON INJ 2 MG/ML 2 ML VIAL IV PRN (11:22)
[2020-07-26] MEDS ORDERED: oxyCODONE/ACETAMINOPHEN 5mg/325mg TAB PO PRN (11:22)
[2020-07-26] MEDS ORDERED: MoRPHine SULFATE 4 MG/ML 1 ML CARP\\VIAL IV PRN (11:22)
[2020-07-26] MEDS ORDERED: SODIUM CHLORIDE 0.9% 1000ML 1,000 ML IV SCH (11:30)
--- NOTE | 2020-07-26 14:14 | Discharge Summary ---
Date of Service July 26, 2020 Admission HPI Per Admitting Provider Carmen is a 39-year-old female past medical history including morbid obesity, diabetes, hyperlipidemia, GERD, chronic back pain who presented to the emergency room with complaint of upper abdominal pain that started at 3 AM this morning. She states the pain woke her up and was severe. She states that she has had this pain in the past but usually lasts 2 to 3 hours and then resolves on its own. The pain has been persistent and severe in nature. Associated nausea and vomiting. She states that she felt warm and cold and had some chills but did not take her temperature. She states she has a history of chronic reflux and takes omeprazole daily and famotidine as needed. She states she had a upper scope years ago and had H. pylori infection however no history of gastric or duodenal ulcers that she is aware of. She takes chronic hydrocodone for chronic back pain and has history of constipation. Denies of any diarrhea, blood in the stools, black tarry stools. 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 Denies of any difficulty urinating or blood in the urine. She has a history of a section in 2019 as well as a appendectomy when she was 13 years old. No other abdominal procedures. No history of blood clots or blood thinners. ER work-up included labs which showed leukocytosis of 13,000. T bili and LFTs within normal limits but alk phos slightly elevated. Ultrasound showed 1.2 cm gallstone however no evidence of gallbladder wall thickening or pericholecystic fluid common bile duct was 4 mm. Admission Exam Per Admitting Provider Constitutional: well developed, well nourished, + acute distress and + morbidly obese; not ill appearing and not intoxicated appearing Respiratory: normal respiratory effort, lungs clear to auscultation no respiratory distress, no labored breathing and no retractions Cardiovascular: RRR, no murmur, no edema Gastrointestinal (Abdomen): Inspection/Auscultation: abdomen normal to inspection and normal bowel sounds; abdomen not distended Percussion/Palpation: + abdomen tender (Right upper quadrant and epigastric), + guarding (Right upper quadrant and epigastric) and abdomen soft; abdomen not rigid Skin: no rashes, warm and dry no jaundice Psychiatric: Orientation: alert, oriented x 3 and cooperative Principal Diagnosis Cholelithiasis with cholecystitis Discharge Exam Constitutional no acute distress Gastrointestinal (Abdomen) Inspection/Auscultation: normal bowel sounds; abdomen not distended Percussion/Palpation: + abdomen tender (Incisional only) and abdomen soft Discharge Data Allergies Allergy/AdvReac Type Severity Reaction Status Date / Time No Known Allergies Allergy Verified 07/23/20 10:29 Consultations 07/23/20 13:37 Consult General Surgery Stat Procedures Performed Operation Date: 07/23/20 10:30 Actual Procedures p Laparoscopic Cholecystectomy - Luis Felipe Boothe MD Ordered Studies 07/23/20 08:53 US gallbladder Stat Hospital Course (1) Right upper quadrant abdominal pain: Patient was taken to the underwent a laparoscopic cholecystectomy under general anesthesia. Estimated blood loss was 5 cc. Findings at time of the procedure showed that the gallbladder was markedly distended. The wall was not thickened. There was a lot of edema in the surrounding tissues of the gallbladder and between the gallbladder and the liver bed. There was cholelithiasis noted. The liver was of normal size and contour and the visible bowel appeared normal. She tolerated the procedure well. Postoperative day #1 she was tolerating a regular diet and ambulating. She had only incisional discomfort. She denied nausea and vomiting. She was stable for discharge. Total Time Total Time Spent Total Time Spent (In Minutes): 20 Discharge Plan Discharge Items Patient Disposition: Home - Self-Care Reason For Visit: CHOLECYSTITIS Discharge Diagnosis: Same Condition on Discharge: Good Activity: As commented below Non-emergency contact: Surgeon Call non-emergency contact if: your temperature is above 101.5 and your wound has increased redness Follow-up/Referrals: Smitha Brown PA-C [Primary Care Provider] - Diet: Regular Addtl Attending Provider Instructions: Post-Surgical ~Discharge Instructions Activity Recommendations: - lifting limitation: (10 pounds for 2 weeks), - exercise/sex/sports limit: (nonstrenuous for 2 weeks), - driving or machine use limit: (none for 1 week), - Shower/bathe limit: (may shower beginning tomorrow) Diet: - Resume previous diet SPECIAL CARE INSTRUCTIONS: - May shower in 24 hours. Let water run over area and pat dry. - Leave steri strips on for one week. - Call the surgeon's office with any questions or concerns - - (ex. temperature higher than 101 degrees F, excessive bleeding or pain). MEDICATIONS: - Resume previous medications unless instructed otherwise by your surgeon. - Ibuprofen 600 mg every 6 hours with food - Percocet 1 every 4 hours, as needed for pain FOLLOW UP VISIT: - If not already scheduled, please call the office to schedule a two week follow-up appointment. Office number Pending Studies at Discharge: Yes Stand-Alone Forms: My [facility], Smoking Cessation Medications and DC Order Prescriptions: New oxycodone-acetaminophen [Percocet] 5-325 mg Tablet 1 tab PO Q4H PRN (Reason: pain) Qty: 5 RF: 0 Continued atorvastatin 20 mg tablet 20 mg PO QPM Qty: 30 RF: 2 famotidine [Pepcid] 40 mg tablet 40 mg PO BID PRN (Reason: acid reflux) Qty: 60 RF: 2 hydrocodone-acetaminophen 5-325 mg tablet 1 tab PO Q12 PRN (Reason: Pain) RF: 0 albuterol sulfate 90 mcg/actuation HFA aerosol inhaler 2 puff inhalation Q6H PRN (Reason: shortness of breath or wheezing) Qty: 8.5 RF: 2 cyclobenzaprine 10 mg Tablet 10 mg PO TID PRN (Reason: Muscle Spasm) RF: 0 tizanidine 4 mg tablet 4 mg PO Q8 PRN (Reason: Muscle Spasm) RF: 0 pregabalin 200 mg capsule 200 mg PO BID RF: 0 omeprazole 40 mg capsule,delayed release(DR/EC) 40 mg PO BID RF: 0 Januvia 50 mg tablet 50 mg PO QAM RF: 0 Discharge Orders: Discharge Order (Routine); Ordered 07/24/20 Ordered By: Luis Felipe Boothe Admission Data Admit Date/Time: 07/23/20 19:10 Attending Provider: Luis Felipe Boothe Admit Provider: Luis Felipe Boothe Primary Care Provider: Smitha Brown Other Providers: Luis Felipe Boothe Other Interventions: Discharge Summary Assessment (RN) Last Done: 07/24/20 10:16
== END 2020-07-24 11:25 | disposition home or self-care (01) ==
LOC: ED 08:22 → OR 16:45 → 3W 16:45